=== PATIENT | female | born 1970 | race Caucasian/White ===

== ENCOUNTER 2019-08-01 15:25 | Outpatient (CLI) | payer BC, SELFPAY ==
[2019-08-01 15:47] LABS: Add Urine Microscopic? YES; Appearance Urine Clear (Clear); Bacteria Urine Trace /hpf; Bilirubin Urine Negative (Negative); Blood Urine 2+ (Negative); Color Urine Straw (Yellow); Glucose Urine UA Negative (Negative); Ketones Urine Negative (Negative); Leukocyte Esterase Ur Trace LEU/UL (Negative); Mucus Urine Rare /lpf; Nitrate Urine Negative (Negative); Protein Urine 1+ mg/dL (Negative); Specific Grav Ur 1.005 (1.001-1.035); Squamous Epithelial Cell Urine Few /hpf (Few); Urobilinogen Urine Negative mg/dL (<2.0); WBC Urine 0-3 /hpf
[2019-08-01 15:57] LABS: Alanine Aminotransferase 21 U/L (4-35); Albumin Level 4.3 g/dL (3.5-5.1); Alkaline Phosphatase 64 U/L (38-126); Aspartate Amino Transferase 24 U/L (14-36); Bilirubin,Total 0.6 mg/dL (0.2-1.3); Blood Urea Nitrogen 11 mg/dL (7-17); Calcium 9.3 mg/dL (8.4-10.2); Carbon Dioxide 31 mmol/L (22-30); Chloride 101 mmol/L (98-107); Estimated Glomerular Filt Rate 53; Glucose 94 mg/dL (65-105); Lipase 154 U/L (23-300); Potassium 3.8 mmol/L (3.4-5.0); Sodium 139 mmol/L (137-145)
== END 2019-08-01 15:26 | disposition home or self-care (01) ==
LOC: ANHLAB 15:26
PROVIDERS: PCP Family Medicine; Visit Provider Family Medicine
DX: R10.9 Unspecified abdominal pain (principal)
CPT/HCPCS: 36415; 80053; 81001; 83690

== ENCOUNTER 2020-04-05 13:29 | Emergency (ER) | payer BC, SELFPAY ==
[2020-04-05] VITALS (20 sets, daily range): BP systolic 106–128; BP diastolic 60–87; PULSE 73–86; RESP 16–27; TEMP 36.6; O2SAT 91–99
--- NOTE | ~2020-04-05 | XR_ITS ---
EXAMINATION: XR chest 1V portable DATE: 04/05/2020 14:16 INDICATION: Shortness of breath. COVID-19 positive. TECHNIQUE: A single frontal view of the chest was obtained. COMPARISON: CT abdomen and pelvis 02/21/2019 FINDINGS: There are mild airspace opacities in left mid and lower lung zones. No pleural effusion or pneumothorax. The heart size is normal. Surgical clips in the right upper quadrant are likely from ch olecystectomy. IMPRESSION: 1. Mild airspace opacities in left mid and lower lung zones, consistent with pneumonia. Reviewed, dictated and finalized at location A. IMPRESSION: 1. Mild airspace opacities in left mid and lower lung zones, consistent with pn eumonia.
--- NOTE | ~2020-04-05 | CT_ITS ---
EXAMINATION: CTA chest PE protocol DATE: 04/05/2020 15:12 INDICATION: Shortness of breath, elevated d-dimer, COVID positive TECHNIQUE: Computed tomography angiography (CTA) of the chest was performed with 100 mL Omnipaque-350 intravenous contrast timed to evaluate the pulmonary arteries. Coronal maximum intensity projection 3D-reconstructions were created by the technologist. The dose-length product (DLP) was 1029.14 mGy-cm . Automated exposure control and iterative reconstruction technique were employed. COMPARISON: None. FINDINGS: The pulmonary arteries are well-opacified. No pulmonary embolism is identified. There is a 4.2 x 4.1 cm soft tissue density nodule of the left thyroid lobe. Patchy groundglass and airspace opa cities are present throughout the lungs with a mid and lower lung zone predominance. There is no pleu ral effusion or pneumothorax. The heart size is normal. Prominent, but not enlarged, hilar lymph node s are likely reactive. There is mild thoracic spondylosis. The gallbladder is surgically absent. IMPRESSION: 1. No pulmonary embolism identified. 2. Patchy groundglass and airspace opacities in a distribution consistent with COVID 19 pneumonia. 3. 4.2 cm left thyroid nodule. Recommend nonemergent thyroid ultrasound for risk stratification. Reviewed, dictated and finalized at location A. IMPRESSION: 1. No pulmonary embolism identified. 2. Patchy groundglass and airspace opacities in a distribution consistent with COVID 19 pneumonia. 3. 4.2 cm left thyroid nodule. Recommend nonemergent thyroid ultrasound for ris k stratification.
--- NOTE | 2020-04-05 13:55 | ECG_ITS ---
Measurements Intervals [place] Rate: 80 P: 24 SD: 150 QRS: -30 QRSD: 94 T: 15 QT: 365 QTc: 422 Interpretive Statements SINUS RHYTHM INCOMPLETE RIGHT BUNDLE BRANCH BLOCK POOR R WAVE PROGRESSION, ANTERIOR LEADS BORDERLINE T WAVE ABNORMALITY- INFERIOR LEADS BASELINE ARTIFACT- I, III, AVR, AVL BORDERLINE ECG Electronically Signed On 04-05-2020 14:23:51 CDT by Germain Duenas D.O.
--- NOTE | 2020-04-05 13:55 | ED.URI ---
HPI - URI/Sore Throat General Chief Complaint: Upper Respiratory Infection Stated Complaint: sob, covid+ Time Seen by Provider: 04/05/20 13:32 Source: patient Limitations: no limitations History of Present Illness HPI Narrative: This is a 49 year old female that presents to the ER for shortness of breath x 1 week. Reports she tested positive for coronavirus. Reports ongoing cough and shortness of breath. Reports chest pain with cough. Denies fever or lower extremity edema. Related Data Home Medications Medication Instructions Recorded Confirmed escitalopram oxalate [Lexapro] 15 mg PO DAILY 04/05/20 fluticasone furoate-vilanterol 1 inh INHALATION 04/05/20 [Breo Ellipta] lisinopril 20 mg PO DAILY 04/05/20 Allergies Allergy/AdvReac Type Severity Reaction Status Date / Time No Known Allergies Allergy Verified 04/05/20 13:31 Review of Systems Review of Systems: Narrative: CONSTITUTIONAL: Denies fever ENT: Reports rhinorrhea, congestion CARDIOVASCULAR: Reports chest pain RESPIRATORY: Reports cough and dyspnea. All systems reviewed & are unremarkable except as noted in HPI and below PMFSH Past Medical History Medical History (Updated 04/05/20 @ 17:09 by Brisa Rucker PA-C) Depression Dyslipidemia Environmental allergies Essential (primary) hypertension GERD without esophagitis Mild intermittent asthma without complication Pre-diabetes Surgical History Surgical History (System 09/07/19 @ 12:34 by Swati Canas) H/O oophorectomy 2013 History of cholecystectomy 2000 Hx of section 1998 Hx of dilation and curettage x2 - 1996 Family History Family History (System 09/07/19 @ 12:34 by Swati Canas) Mother Hypertension Family history of diabetes mellitus in first degree relative Father Family history of diabetes mellitus in first degree relative Social History Social History (System 09/07/19 @ 12:34 by Swati Canas) Smoking status: Never smoker Second hand tobacco smoke exposure: No Alcohol intake: current Substance use: never Substance use type: does not use Exam Narrative: Exam Narrative: GENERAL: Well-appearing, obese, and in no acute distress. HEAD: Normocephalic, atraumatic. EYES: EOMI. ENT: Nares clear, no rhinorrhea or epistaxis. Mucous membranes moist. Oropharynx without tonsillar hypertrophy exudate or other lesions. Bilateral TMs pearly coppola non-bulging NECK: Supple. No adenopathy or masses. CHEST: Clear to auscultation. No respiratory distress. No wheezes rales or rhonchi HEART: Regular rate and rhythm. No murmur heard. Normal peripheral pulses. EXTREMITIES: Normal range of motion. No edema. SKIN: Warm, dry, no rash. NEURO: No focal deficits. Alert and oriented x3. PSYCH: Normal mood and affect Course Vital Signs Vital signs: Vital Signs Temperature 97.9 F 04/05/20 13:46 Pulse Rate 80 04/05/20 13:46 Respiratory Rate 16 04/05/20 13:46 Blood Pressure 115/71 04/05/20 13:46 Pulse Oximetry 96 04/05/20 13:46 Temperature 97.9 F 04/05/20 13:46 Pulse Rate 78 04/05/20 16:02 Respiratory Rate 19 04/05/20 16:02 Blood Pressure 106/60 04/05/20 16:01 Pulse Oximetry 95 04/05/20 16:15 MDM - URI/Sore Throat MDM Narrative Medical decision making narrative: Presents to the emergency department for worsening shortness of breath. Was recently diagnosed with Covid. Oxygen saturation has remained normal on room air. CBC without concerning findings. Metabolic panel with mild hypokalemia. Patient given dose of potassium in the ED. CRP and lactic are normal. Mild transaminitis and elevation in LDH, likely due to coronavirus. Chest x-ray shows airspace opacities in the left mid and lower lung zones, consistent with pneumonia. D-dimer was elevated, so CTA of the chest was obtained. No evidence of pulmonary embolism. Patient does have patchy groundglass and airspace opacities in the distribution consistent with Covid pne
--- NOTE | 2020-04-05 14:21 | PC.NURSE ---
patient here in ED room 14 with c/o not feeling well for the last few days. dx with Covid recently. c/o productive cough and body aches. assessments documented. alert. on monitor. EKG done. call light in reach. cold washcloth given to patient.
[2020-04-05 14:24] LABS: Basophils Percent Auto 0.3 % (0.2-1.2); Hematocrit 40.8 % (37.0-47.0); Hemoglobin 14.5 g/dL (12.0-15.0); Immature Granulocyte Absolute 0.01 K/mm3 (0.00-0.031); Immature Granulocyte Percent A 0.3 % (0-0.5); Lymphocytes Absolute Auto 0.98 K/mm3 (0.9-3.2); Lymphocytes Percent Auto 31.4 % (18.3-44.2); Mean Corpuscular HGB Conc 35.5 g/dl (32-36); Mean Corpuscular Hemoglobin 30.9 pg (26-34); Mean Platelet Volume 10.4 fl (7.4-10.4); Monocytes Absolute Auto 0.3 K/mm3 (0.1-0.6); Monocytes Percent Auto 10.9 % (2.6-8.5); Neutrophils Absolute Auto 1.8 K/mm3 (1.3-6.7); Neutrophils Percent Auto 57.1 % (45.5-73.1); Platelet Count Result 138 k/mm3 (150-375); Red Blood Count 4.69 M/mm3 (4.2-5.4); Red Cell Distribution Width 12.2 % (11.5-14.5); White Blood Count 3.1 K/mm3 (4.5-10.0)
[2020-04-05 14:39] LABS: Lactic Acid Reflex 0.8 mmol/L (0.7-2.1)
[2020-04-05 14:40] LABS: D Dimer 0.51 ug/mL (<0.48)
[2020-04-05 14:41] LABS: Alanine Aminotransferase 126 U/L (4-35); Albumin Level 3.5 g/dL (3.5-5.1); Alkaline Phosphatase 92 U/L (38-126); Anion Gap 5 mmol/L (8-16); Aspartate Amino Transferase 100 U/L (14-36); Bilirubin,Total 0.5 mg/dL (0.2-1.3); Blood Urea Nitrogen 8 mg/dL (7-17); CRP 1.1 mg/dL (<1.0); Carbon Dioxide 29 mmol/L (22-30); Chloride 98 mmol/L (98-107); Estimated CRCL calculation 86 ml/min; Estimated Glomerular Filt Rate > 60; Glucose 128 mg/dL (65-105); Lactate Dehydrogenase 813 U/L (313-618); Potassium 3.3 mmol/L (3.4-5.0); Sodium 132 mmol/L (137-145)
[2020-04-05 14:48] LABS: Troponin I < 0.012 ng/mL (0.000-0.034)
[2020-04-05] MEDS: ONDANSETRON INJ 4 MG/2 ML VIAL IV PUSH (15:15)
[2020-04-05] MEDS: POTASSIUM CHLORIDE 20 MEQ TABLET PO (16:23)
--- NOTE | 2020-04-05 17:30 | PC.NURSE ---
patient ready for discharge. reviewed instructions with patient. verbalized understanding.
== END 2020-04-05 17:29 | disposition home or self-care (01) ==
PROVIDERS: Physician Assistant; Emergency Provider Emergency Medicine; PCP Family Medicine
DX: U07.1 COVID-19 (principal); J12.89 Other viral pneumonia; E87.1 Hypo-osmolality and hyponatremia; E04.1 Nontoxic single thyroid nodule; E78.5 Hyperlipidemia, unspecified; I10 Essential (primary) hypertension; K21.9 Gastro-esophageal reflux disease without esophagitis; J45.20 Mild intermittent asthma, uncomplicated; R73.03 Prediabetes; I45.10 Unspecified right bundle-branch block; F32.9 Major depressive disorder, single episode, unspecified; R94.31 Abnormal electrocardiogram [ECG] [EKG]
CPT/HCPCS: 36415; 71045; 71275; 80053; 82728; 83605; 83615; 84484; 85025; 85380; 86140; 93005; 96374; 99284; A9270; J2405; Q9967

== ENCOUNTER → 2020-06-12 11:45 | Outpatient (CLI) | payer BC, SELFPAY ==
--- NOTE | ~2020-06-12 | US_ITS ---
EXAMINATION: US thyroid EXAM DATE: 06/12/2020 12:11 INDICATION: E04.1 - Nontoxic single thyroid nodule. TECHNIQUE: Multiple grayscale and Doppler images of the thyroid were obtained (by a technologist who performed the scan) and subsequently reviewed. Individual nodules and recommendations may be reporte d in accordance with TI-RADS system as designated by the 2017 ACR White Paper TI-RADS committee. The re is no prior study for comparison. FINDINGS: The right thyroid lobe measures 5.9 x 2.3 x 1.8 cm, The left measuring 7.3 x 4.0 x 5.3 cm. Relatively homogeneous thyroid echogenicity. Most of the size of the left thyroid lobe is due to a spongiform nodule measuring 5.8 x 3.2 x 4.5 no timeters, category TR1 for this nodule. Probably a colloid cyst. There is a left isthmus thyroid nodule measuring 2.1 x 1.5 x 2.2 cm, solid (2 points), isoechoic (1 p oint), wider than tall, smooth margin, without echogenic foci, category TR3 for this nodule. There is another nodule in the right thyroid isthmus measuring 1.8 x 1.0 x 1.4 cm, similar imaging characteri stics category TR 3 nodule. IMPRESSION: Multinodular goiter. Consider follow-up ultrasound in 2 years for the category TR 3 nod ules. Reviewed, dictated and finalized at location B. 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 Consider follow-up ultrasound in 2 years for the category TR 3 nodules.
== END ==
PROVIDERS: PCP Family Medicine; Visit Provider Family Medicine
DX: E04.2 Nontoxic multinodular goiter (principal)
CPT/HCPCS: 76536

== ENCOUNTER 2020-09-19 09:32 | Emergency (ER) | payer OTHER, BC, SELFPAY ==
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
[2020-09-19 09:35] VITALS: BP 158/93; PULSE 91; RESP 18; TEMP 36.1; O2SAT 98
--- NOTE | 2020-09-19 09:50 | PC.NURSE ---
Pt to CT via stretcher at this time.
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
== END 2020-09-19 11:51 | disposition home or self-care (01) ==
PROVIDERS: Emergency Provider Emergency Medicine; PCP Family Medicine
DX: S16.1XXA Strain of muscle, fascia and tendon at neck level, initial encounter (principal); Z86.16 Personal history of COVID-19; E78.5 Hyperlipidemia, unspecified; F32.9 Major depressive disorder, single episode, unspecified; K21.9 Gastro-esophageal reflux disease without esophagitis; I10 Essential (primary) hypertension; E73.9 Lactose intolerance, unspecified; J45.20 Mild intermittent asthma, uncomplicated; R73.03 Prediabetes; E04.1 Nontoxic single thyroid nodule; V49.40XA Driver injured in collision with unspecified motor vehicles in traffic accident, initial encounter
CPT/HCPCS: 72125; 96365; 99284; J0131

== ENCOUNTER 2020-10-08 21:49 | Emergency (ER) | payer BC, SELFPAY ==
[2020-10-08 21:53] VITALS: BP 183/101; PULSE 87; RESP 18; TEMP 36; O2SAT 99
[2020-10-08] MEDS: LIDOCAINE HCL 1% LOCAL INJ 20 ML VIAL 5 ML INFILTRATE (22:44)
--- NOTE | 2020-10-08 23:16 | ED.WOUNDLAC ---
HPI - Wound/Laceration General Chief Complaint: Wound/Laceration Stated Complaint: right middle finger lac Time Seen by Provider: 10/08/20 22:02 Source: patient Mode of arrival: ambulatory Limitations: no limitations History of Present Illness HPI narrative: This is a 49 year old female who presents for evaluation of a right 3rd finger laceration. She states tonight glass accidently broke in her hand, and she cut her right 3rd finger. She denies numbness or tingling. Her last tetanus was in 2019. Related Data Home Medications Medication Instructions Recorded Confirmed escitalopram oxalate [Lexapro] 15 mg PO DAILY 04/05/20 10/08/20 fluticasone furoate-vilanterol 1 inh INHALATION 04/05/20 10/08/20 [Breo Ellipta] triamcinolone acetonide 55 mcg 2 spray INTRANASAL DAILY 06/04/20 10/08/20 nasal spray aerosol cetirizine 10 mg capsule 10 mg PO DAILY PRN 10/08/20 10/08/20 guaifenesin 600 mg tablet, 600 mg PO Q12H PRN 10/08/20 10/08/20 extended release 12 hr montelukast 10 mg tablet 10 mg PO DAILY 10/08/20 10/08/20 Allergies Allergy/AdvReac Type Severity Reaction Status Date / Time No Known Allergies Allergy Verified 10/08/20 16:16 Review of Systems Review of Systems: All systems reviewed & are unremarkable except as noted in HPI and below PMFSH Past Medical History Medical History 2018 novel coronavirus disease (COVID-19) 03/2020 Depression Dyslipidemia Environmental allergies Essential (primary) hypertension GERD without esophagitis Lactose intolerance Mild intermittent asthma without complication Multinodular goiter Pre-diabetes Surgical History Surgical History H/O oophorectomy (~2012) 2013 - left due to recurrent cyst History of cholecystectomy (~1999) 1999 Hx of section (~1997) 1997 Hx of dilation and curettage (~1995) x2 - 1995 Family History Family History Mother Hypertension Family history of diabetes mellitus in first degree relative Asthma Diabetes mellitus Depression Father Family history of diabetes mellitus in first degree relative Asthma Diabetes mellitus Hypertension Depression Sibling Asthma Depression Grandparent Diabetes mellitus Hypertension Cerebrovascular accident Grandparent Diabetes mellitus Heart disease Social History Social History Smoking status: Never smoker Second hand tobacco smoke exposure: No Alcohol intake: current Substance use: never Substance use type: does not use Gender identity (if verbalized by the patient): Female Exam Const: General: alert Orientation/consciousness: patient oriented x3 Eyes: EOM: EOMs intact bilaterally Resp: Effort & Inspection: normal respiratory effort Skin: Other: right dorsum mid 3rd finger with 1 cm linear flap laceration, no bleeding. Neuro: General: patient oriented x3 and moves all extremities Course Vital Signs Vital signs: Vital Signs Temperature 96.8 F L 10/08/20 21:53 Pulse Rate 87 10/08/20 21:53 Respiratory Rate 18 10/08/20 21:53 Blood Pressure 183/101 H 10/08/20 21:53 Pulse Oximetry 99 10/08/20 21:53 Temperature 96.8 F L 10/08/20 21:53 Pulse Rate 78 10/08/20 23:50 Respiratory Rate 18 10/08/20 23:50 Blood Pressure 164/87 H 10/08/20 23:50 Pulse Oximetry 97 10/08/20 23:50 Procedures Laceration Laceration 1: Date: 10/08/20 Time: 23:22 Side (If applicable): right (3rd finger) Description: linear and flap Depth: simple, single layer Local Anesthetic: lidocaine 1% Amount of anesthesia used (mL): 2 ====== Skin Level ====== Skin layer closed with: prolene Size (cm): 4-0 Number of sutures: 2 Technique:
[2020-10-08 23:50] VITALS: BP 164/87; PULSE 78; RESP 18; O2SAT 97
== END 2020-10-08 23:50 | disposition home or self-care (01) ==
PROVIDERS: Emergency Provider General Practice; PCP Family Medicine
DX: S61.212A Laceration without foreign body of right middle finger without damage to nail, initial encounter (principal); F32.9 Major depressive disorder, single episode, unspecified; I10 Essential (primary) hypertension; E78.5 Hyperlipidemia, unspecified; K21.9 Gastro-esophageal reflux disease without esophagitis; W25.XXXA Contact with sharp glass, initial encounter
CPT/HCPCS: 12001; 99282

== ENCOUNTER → 2020-12-27 15:14 | Outpatient (CLI) | payer BC, SELFPAY ==
--- NOTE | ~2020-12-27 | MM_ITS ---
EXAMINATION: MM screening [facility] BI w moriah HISTORY: Screening mammogram TECHNIQUE: Craniocaudal 3-D tomosynthesis images were obtained and synthetic 2-D images were generate d. Mediolateral oblique images were obtained using full field digital mammography CAD analysis was brasher bmitted and interpreted. COMPARISON: 04/27/2018, 03/09/2012, 01/20/2008 BREAST PARENCHYMAL COMPOSITION: The breasts are almost entirely fatty. FINDINGS: There is no evidence of suspicious mass, calcification, or architectural distortion to sugg est malignancy in either breast. There has been no suspicious interval change. IMPRESSION: 1. No mammographic evidence of malignancy. 2. Recommend routine screening mammography in one year. BI-RADS Category 1: Negative Reviewed, dictated and finalized at location A.
== END ==
PROVIDERS: Visit Provider Nurse Practitioner Obstetrics & Gynecology
DX: Z12.31 Encounter for screening mammogram for malignant neoplasm of breast (principal)
CPT/HCPCS: 77063; 77067

== ENCOUNTER 2021-06-10 07:21 | Outpatient (CLI) | payer BC, SELFPAY ==
[2021-06-10 07:41] LABS: Basophils Percent Auto 0.5 % (0.2-1.2); Eosinophils Absolute Auto 0.2 K/mm3 (0-0.3); Eosinophils Percent Auto 3.6 % (0-4.4); Hematocrit 40.9 % (37.0-47.0); Hemoglobin 13.8 g/dL (12.0-15.0); Immature Granulocyte Absolute 0.02 K/mm3 (0.00-0.031); Immature Granulocyte Percent A 0.3 % (0-0.5); Lymphocytes Absolute Auto 2.12 K/mm3 (0.9-3.2); Lymphocytes Percent Auto 33.3 % (18.3-44.2); Mean Corpuscular HGB Conc 33.7 g/dl (32-36); Mean Corpuscular Hemoglobin 30.8 pg (26-34); Mean Corpuscular Volume 91.3 fl (80-100); Mean Platelet Volume 9.1 fl (7.4-10.4); Monocytes Absolute Auto 0.6 K/mm3 (0.1-0.6); Monocytes Percent Auto 9.1 % (2.6-8.5); Neutrophils Absolute Auto 3.4 K/mm3 (1.3-6.7); Neutrophils Percent Auto 53.2 % (45.5-73.1); Platelet Count Result 265 k/mm3 (150-375); Red Blood Count 4.48 M/mm3 (4.2-5.4); Red Cell Distribution Width 12.5 % (11.5-14.5); White Blood Count 6.4 K/mm3 (4.5-10.0)
[2021-06-10 07:50] LABS: Alanine Aminotransferase 23 U/L (4-35); Albumin Level 4.4 g/dL (3.5-5.1); Alkaline Phosphatase 88 U/L (38-126); Amylase 60 U/L (30-110); Anion Gap 8 mmol/L (8-16); Aspartate Amino Transferase 28 U/L (14-36); Bilirubin,Total 0.8 mg/dL (0.2-1.3); Blood Urea Nitrogen 7 mg/dL (7-17); Calcium 9.1 mg/dL (8.4-10.2); Carbon Dioxide 29 mmol/L (22-30); Chloride 101 mmol/L (98-107); Cholesterol 182 mg/dL (0-200); Estimated Glomerular Filt Rate 59; Glucose 101 mg/dL (65-110); HDL Direct 66 mg/dL; Lipase 177 U/L (23-300); Potassium 3.6 mmol/L (3.4-5.0); Sodium 138 mmol/L (137-145); Triglycerides 122 mg/dL (<150)
[2021-06-10 08:01] LABS: LDL Cholesterol Direct 70 mg/dL
[2021-06-10 09:38] LABS: Hemoglobin A1C 5.9 % (<5.7)
[2021-06-10 14:07] LABS: Vitamin D 25 Hydroxy 15.5 ng/mL
== END 2021-06-10 07:22 | disposition home or self-care (01) ==
LOC: ANHLAB 07:24
PROVIDERS: PCP Family Medicine; Visit Provider Family Medicine
DX: Z00.00 Encounter for general adult medical examination without abnormal findings (principal); R10.9 Unspecified abdominal pain; I10 Essential (primary) hypertension; E55.9 Vitamin D deficiency, unspecified; R73.03 Prediabetes; E78.5 Hyperlipidemia, unspecified
CPT/HCPCS: 36415; 80053; 80061; 82150; 82306; 83036; 83690; 84443; 85025

== ENCOUNTER 2021-06-25 19:37 | Emergency (ER) | payer BC, SELFPAY ==
[2021-06-25 19:44] VITALS: BP 152/100; PULSE 84; RESP 18; TEMP 36.1; O2SAT 100
[2021-06-25 22:29] VITALS: BP 193/118; PULSE 82; O2SAT 98
[2021-06-26] VITALS (10 sets, daily range): BP systolic 158–173; BP diastolic 73–115; PULSE 82; RESP 24; O2SAT 96–100
[2021-06-26] MEDS: ONDANSETRON INJ 4 MG/2 ML VIAL IV PUSH (01:24)
[2021-06-26] MEDS: SODIUM CHLORIDE 0.9% IV 1,000 ML 999 ML IV CONT ×2 (01:24→02:22)
--- NOTE | 2021-06-26 01:36 | ED.NAVMDI ---
HPI - Nausea/Vomiting/Diarrhea General Chief complaint: Nausea/Vomiting/Diarrhea Stated complaint: n/v Time Seen by Provider: 06/26/21 00:44 Source: patient Mode of arrival: ambulatory Limitations: no limitations History of Present Illness HPI Narrative: 50-year-old with a history of hypertension here with complaints of nausea, vomiting since this evening. She states that she was babysitting her granddaughter yesterday who had the symptoms. She denies any fever or chills no history states that she threw up at least 4-5 times prior to coming to ER. MD elicited complaint: nausea and vomiting Description of vomiting: watery Associated nausea: Yes Associated abdominal pain: No Location of pain: none Exacerbating factors: eating Related Data Home Medications Medication Instructions Recorded Confirmed escitalopram oxalate [Lexapro] 15 mg PO DAILY 04/05/20 06/09/21 triamcinolone acetonide 55 mcg 2 spray INTRANASAL DAILY 06/04/20 06/09/21 nasal spray aerosol guaifenesin 600 mg tablet, 600 mg PO PRN PRN 10/08/20 06/09/21 extended release 12 hr levocetirizine 5 mg tablet 5 mg PO DAILY 12/17/20 12/17/20 montelukast 10 mg tablet 10 mg PO .COMPLEX 12/17/20 06/09/21 lisinopril 06/26/21 Allergies Allergy/AdvReac Type Severity Reaction Status Date / Time No Known Allergies Allergy Verified 06/26/21 01:29 Review of Systems Review of Systems: All systems reviewed & are unremarkable except as noted in HPI and below Constitutional: Constitutional: Reports no additional constitutional complaints Eyes: Eyes: Reports no additional eye complaints ENT: Reports system reviewed and no additional complaints, except as documented Cardiovascular: Cardiovascular: Reports no additional cardiovascular complaints Respiratory: Respiratory: Reports no additional respiratory complaints Gastrointestinal: Gastrointestinal: Reports as per HPI Musculoskeletal: Musculoskeletal: Reports no additional musculoskeletal complaints [facility] Past Medical History Medical History 2019 novel coronavirus disease (COVID-19) 03/2020 Depression Dyslipidemia Environmental allergies Essential (primary) hypertension GERD without esophagitis History of pancreatitis Lactose intolerance Mild intermittent asthma without complication Multinodular goiter Pre-diabetes Surgical History Surgical History H/O oophorectomy (~2012) 2013 - left due to recurrent cyst History of cholecystectomy (~1999) 2000 Hx of section (~1997) 1997 Hx of dilation and curettage (~1995) x2 - 1995 Family History Family History Mother Hypertension Family history of diabetes mellitus in first degree relative Asthma Diabetes mellitus Depression Father Family history of diabetes mellitus in first degree relative Asthma Diabetes mellitus Hypertension Depression Sibling Asthma Depression Grandparent Diabetes mellitus Hypertension Cerebrovascular accident Grandparent Diabetes mellitus Heart disease Social History Social History Second hand tobacco smoke exposure: No Alcohol intake: current Alcohol use details: 2 beers consumed occasionally Substance use: never Substance use type: does not use Gender identity (if verbalized by the patient): Female Course Vital Signs Vital signs: Vital Signs Temperature 36.1 C L 06/25/21 19:44 Pulse Rate 84 06/25/21 19:44 Respiratory Rate 18 06/25/21 19:44 Blood Pressure 152/100 H 06/25/21 19:44 Pulse Oximetry 100 06/25/21 19:44 Temperature 36.1 C L 06/25/21 19:44 Pulse Rate 82 06/26/21 01:24 Respiratory Rate 24 H 06/26/21 01:24 Blood Pressure 160/115 H 06/26/21 01:24 Pulse Oximetry 99 06/26/21 01:24 MDM - Nausea/Vomitin
[2021-06-26 01:52] LABS: Basophils Percent Auto 0.2 % (0.2-1.2); Eosinophils Percent Auto 0.2 % (0-4.4); Hematocrit 45.1 % (37.0-47.0); Hemoglobin 15.5 g/dL (12.0-15.0); Immature Granulocyte Absolute 0.02 K/mm3 (0.00-0.031); Immature Granulocyte Percent A 0.2 % (0-0.5); Lymphocytes Absolute Auto 0.72 K/mm3 (0.9-3.2); Lymphocytes Percent Auto 6.2 % (18.3-44.2); Mean Corpuscular HGB Conc 34.4 g/dl (32-36); Mean Corpuscular Hemoglobin 30.2 pg (26-34); Mean Corpuscular Volume 87.9 fl (80-100); Mean Platelet Volume 9.5 fl (7.4-10.4); Monocytes Absolute Auto 0.5 K/mm3 (0.1-0.6); Neutrophils Absolute Auto 10.4 K/mm3 (1.3-6.7); Neutrophils Percent Auto 89.2 % (45.5-73.1); Platelet Count Result 349 k/mm3 (150-375); Red Blood Count 5.13 M/mm3 (4.2-5.4); Red Cell Distribution Width 12.5 % (11.5-14.5); White Blood Count 11.6 K/mm3 (4.5-10.0)
--- NOTE | 2021-06-26 01:53 | PC.NURSE ---
Pt reports was unable to keep htn medications down.
[2021-06-26 02:06] LABS: Add Urine Microscopic? YES; Alanine Aminotransferase 32 U/L (4-35); Albumin Level 4.7 g/dL (3.5-5.1); Alkaline Phosphatase 103 U/L (38-126); Anion Gap 12 mmol/L (8-16); Appearance Urine Cloudy (Clear); Aspartate Amino Transferase 30 U/L (14-36); Bilirubin Urine Negative (Negative); Blood Urea Nitrogen 13 mg/dL (7-17); Blood Urine 3+ (Negative); Calcium 9.5 mg/dL (8.4-10.2); Carbon Dioxide 23 mmol/L (22-30); Chloride 105 mmol/L (98-107); Color Urine Amber (Yellow); Estimated CRCL calculation 78 ml/min; Estimated Glomerular Filt Rate 59; Glucose 147 mg/dL (65-110); Glucose Urine UA Negative (Negative); Ketones Urine Trace mg/dL (Negative); Leukocyte Esterase Ur Negative LEU/UL (Negative); Lipase 107 U/L (23-300); Mucus Urine Heavy /lpf; Nitrate Urine Negative (Negative); Potassium 3.7 mmol/L (3.4-5.0); Protein Urine 3+ mg/dL (Negative); RBC Urine >75 /hpf (0-2); Sodium 140 mmol/L (137-145); Specific Grav Ur 1.025 (1.001-1.035); Squamous Epithelial Cell Urine Occasional /hpf (Few); Urobilinogen Urine Negative mg/dL (<2.0)
--- NOTE | 2021-06-26 02:09 | PC.NURSE ---
Addendum entered by Damien Rojas RN 06/26/21 02:10: Pt states also has a history of having blood in her urine. Has seen a urologist and they suspect she has kidney stones. Pt states no pain in her back at present time. Original Note: States feels quite a bit better.
--- NOTE | 2021-06-26 03:20 | PC.NURSE ---
Dr. Viveros at bedside discussing plan of care. Pt states nausea is returning. Verbal order received.
[2021-06-26] MEDS: PROMETHAZINE HCL 25 MG/ML AMPUL 12.5 MG IV PUSH (03:24)
== END 2021-06-26 03:40 | disposition home or self-care (01) ==
PROVIDERS: Emergency Provider Family Medicine; PCP Family Medicine
DX: K52.9 Noninfective gastroenteritis and colitis, unspecified (principal); I10 Essential (primary) hypertension; E78.5 Hyperlipidemia, unspecified; K21.9 Gastro-esophageal reflux disease without esophagitis; E73.9 Lactose intolerance, unspecified; J45.20 Mild intermittent asthma, uncomplicated; R73.03 Prediabetes; E04.2 Nontoxic multinodular goiter; F32.A Depression, unspecified; Z86.16 Personal history of COVID-19
CPT/HCPCS: 36415; 80053; 81001; 83690; 85025; 96361; 96374; 96375; 99284; J2405; J2550; J7030

== ENCOUNTER 2021-09-29 08:01 | Outpatient (CLI) | payer BC, SELFPAY ==
--- NOTE | 2021-09-29 08:00 | ECG_ITS ---
Measurements Intervals [place] Rate: 68 P: 9 NV: 127 QRS: -16 QRSD: 110 T: 12 QT: 397 QTc: 423 Interpretive Statements SINUS RHYTHM POOR R-WAVE PROGRESSION LOW QRS VOLTAGE IN PRECORDIAL LEADS [QRS DEFLECTION < 1.0 mV IN CHEST LEADS] COMPARED TO ECG 04/05/2020 14:07:40 NO SIGNIFICANT CHANGES Electronically Signed On 09-29-2021 15:30:49 CDT by Karthikeyan Mancia M.D.
== END 2021-09-29 08:02 | disposition home or self-care (01) ==
LOC: ANHSURGERY 08:06
PROVIDERS: PCP Internal Medicine; Visit Provider Otolaryngology
DX: Z01.818 Encounter for other preprocedural examination (principal); I10 Essential (primary) hypertension
CPT/HCPCS: 93005

== ENCOUNTER 2021-09-30 00:34 | Day surgery (SDC) | payer BC, SELFPAY ==
[2021-09-24 10:36] VITALS: BMI 40.9
--- NOTE | 2021-09-24 10:49 | PC.NURSE ---
Report to the Outpatient Waiting Room, entrance under the green pavilion located off [facility], at time 6:00 on date 09/30/21. OR Time: 7:45. - You and your visitor will be asked a series of questions to screen for COVID 19 for your protection. - A mask is required within the hospital. One visitor will be allowed to accompany the patient into the hospital. Patients visitor will be instructed to remain with patient at all times or leave the building. We will allow the visitor to come back to the postoperative area when patient is ready. Preoperative COVID Testing Requirements: TO BRING COPY OF COVID CARD No COVID Test needed if: (proof is required; if not received patient will have Rapid Test prior to entry) - Patient has received COVID Vaccine at least 14 days prior to procedure date or - Patient has positive COVID test result within last 90 days of surgery date. COVID Test needed if above criteria is not met Patients may have clear liquids (water, carbonated beverages, clear teas, apple juice) until 3 hours prior to surgery with a maximum of 20 ounces. - No food from midnight until time of surgery - Infants may have breast milk until 4 hours before surgery, infant formula 6 hours prior to surgery. - Children will be allowed to drink immediately following surgery. If applicable, please bring a bottle or sippy cup to assist with drinking. Juice, water, soda, and popsicles are readily available. For infants on formula, please bring formula the day of surgery. Pacifiers are allowed. Take the following medications with a SIP of water the morning of surgery: INHALERS Medications to discontinue per physician: VITAMINS/SUPPLEMENTS Date to take last dose: 09/26/21 Please no make-up, nail salvadorean, hairspray, perfume, deodorant, or body powder the day of surgery. No jewelry (including any body piercings) or valuables the day of surgery, leave them at home. Please take a shower or bath the night before, or the morning of, surgery with an antibacterial soap. Wear comfortable, loose fitting clothing. - Jewelry must be removed prior to entering the operating room. Rings and piercings that are not removed may be cut off. - The hospital will not accept responsibility for valuables. - Please leave all valuables, including medications, at home the day of surgery. If you are going home after surgery, a licensed ambulette driver must drive you home. - NO public transportation without another adult. - We recommend that an adult stay with you for 24 hours following discharge. - We also recommend that you do not drive, make important decision, drink alcoholic beverages, or take any drugs that were not prescribed by your health care provider for at least 24 hours after your discharge time. Follow any additional instructions given to you from your surgeon. Telephone instructions given to ANGELA MONTENEGRO and asked if any additional questions and then verbalized understanding. Patient advised to call surgeon office or pre surgery nurse liaison [phone] if any additional questions.
--- NOTE | 2021-09-29 12:56 | WPDANESEPPF ---
Anes - Initial Pre Proc Eval Procedure: Operation Date: 09/30/21 07:45 Proposed Procedures p Left Thyroidectomy, Isthmusectomy - Daniel Napoles MD Date/Time: 09/29/21 12:56 Surgeon: Daniel Napoles MD Pre Op Diagnosis: left thyroid nodule Patient Data Age: 50 Gender: F Height: 1.68 m Weight: 115 kg Allergies Allergy/AdvReac Type Severity Reaction Status Date / Time adhesive AdvReac Redness of Verified 09/30/21 07:36 Skin Home Medications Medication Instructions Recorded Confirmed Type escitalopram oxalate [Lexapro] 15 mg PO HS 04/05/20 09/24/21 History triamcinolone acetonide 55 mcg 2 spray INTRANASAL DAILY 06/04/20 09/24/21 History nasal spray aerosol guaifenesin 600 mg tablet, 600 mg PO PRN PRN 10/08/20 09/24/21 History extended release 12 hr levocetirizine 5 mg tablet 5 mg PO DAILY 12/17/20 09/24/21 History montelukast 10 mg tablet 10 mg PO .COMPLEX 12/17/20 09/24/21 History omeprazole 40 mg capsule,delayed 40 mg PO DAILY #90 cap 04/22/21 09/24/21 Rx release cholecalciferol (vitamin D3) 1,250 1,250 mcg PO WEEKLY #12 tablet 06/10/21 09/24/21 Rx mcg (50,000 unit) tablet Lacto.acidophilus-Bif.animalis 1 cap PO DAILY 08/18/21 09/24/21 History [Daily Probiotic] albuterol sulfate 90 mcg/actuation 1 puff INHALATION Q4H PRN 08/18/21 09/24/21 History aerosol inhaler cetirizine 10 mg tablet 10 mg PO WEEKLY PRN tablet 08/18/21 09/24/21 History diphenhydramine HCl 25 mg capsule 50 mg PO HS cap 08/18/21 09/24/21 History famotidine 40 mg tablet 40 mg PO .once monthly tablet 08/18/21 09/24/21 History fluticasone furoate 200 1 inh INHALATION DAILY #60 ea 08/18/21 09/24/21 Rx mcg-vilanterol 25 mcg/dose inhalation powder lisinopril 20 mg tablet 20 mg PO DAILY 08/18/21 09/24/21 History multivitamin 1 tablet PO DAILY 08/18/21 09/24/21 History ashwagandha root extract 300 mg PO DAILY 09/24/21 09/24/21 History Patient hx anesthesia problems: none Family hx anesthesia problems: none Results Review: All pre-operative results and documents have been reviewed as part of the pre-operative evaluation. [facility] Past Medical History Medical History (Updated 09/29/21 @ 12:56 by Trevon Jackson, DO) 2019 novel coronavirus disease (COVID-19) 03/2020 Anxiety Asthma Depression Dyslipidemia Environmental allergies Essential (primary) hypertension GERD without esophagitis History of pancreatitis Lactose intolerance Mild intermittent asthma without complication Multinodular goiter Pre-diabetes Surgical History Surgical History H/O oophorectomy (~2012) 2013 - left due to recurrent cyst History of cholecystectomy (~1999) 1999 History of tonsillectomy 1978 Hx of section (~1997) 1997 Hx of dilation and curettage (~1995) x2 - 1995 Family History Family History Mother Hypertension Family history of diabetes mellitus in first degree relative Asthma Diabetes mellitus Depression Father Family history of diabetes mellitus in first degree relative Asthma Diabetes mellitus Hypertension Depression Sibling Asthma Depression Grandparent Diabetes mellitus Hypertension Cerebrovascular accident Grandparent Diabetes mellitus Heart disease Alcoholism Depression Cerebrovascular accident Social History Social History Smoking status: Never smoker Second hand tobacco smoke exposure: No Alcohol intake: never Alcohol use details: 2 beers consumed occasionally Substance use: current Substance use type: marijuana Other substance usage details: EDIBLES AT NIGHT Living arrangements: with family Gender identity (if verbalized by the patient): Female Spiritual care concerns: No Anes - Eval Final PreProcedure Day of Procedure 09/29/21 12:56 Patient weight: morbidly obese H
--- NOTE | 2021-09-29 18:37 | PM.IMHP ---
H&P: HPI History of Present Illness Date/Time: 09/29/21 18:37 Chief Complaint: choking coughing compression thyroid goiter left thyroid nodule thyroid isthmus nodule Narrative: patient presents for planned surgical procedure no change in symptoms no change in history Review of Systems Constitutional: Constitutional: Denies fatigue, Denies fever(s) and Denies lethargy Eyes: Eyes: Denies blurry vision and Denies change in vision ENT: Reports as per HPI Cardiovascular: Cardiovascular: Denies chest pain Respiratory: Respiratory: Denies cough Endocrine: Endocrine: Denies fatigue Hematologic/Lymphatic: Hematologic/Lymphatic: Denies easy bleeding, Denies easy bruising and Denies lymphadenopathy Allergic/Immunologic: Allergic/Immunologic: Denies seasonal rhinorrhea [facility] Past Medical History Medical History (Updated 09/29/21 @ 12:56 by Trevon Jackson, DO) 2019 novel coronavirus disease (COVID-19) 03/2020 Anxiety Asthma Depression Dyslipidemia Environmental allergies Essential (primary) hypertension GERD without esophagitis History of pancreatitis Lactose intolerance Mild intermittent asthma without complication Multinodular goiter Pre-diabetes Surgical History Surgical History H/O oophorectomy (~2012) 2013 - left due to recurrent cyst History of cholecystectomy (~1999) 1999 History of tonsillectomy 1978 Hx of section (~1997) 1998 Hx of dilation and curettage (~1995) x2 - 1995 Family History Family History Mother Hypertension Family history of diabetes mellitus in first degree relative Asthma Diabetes mellitus Depression Father Family history of diabetes mellitus in first degree relative Asthma Diabetes mellitus Hypertension Depression Sibling Asthma Depression Grandparent Diabetes mellitus Hypertension Cerebrovascular accident Grandparent Diabetes mellitus Heart disease Alcoholism Depression Cerebrovascular accident Social History Social History Smoking status: Never smoker Second hand tobacco smoke exposure: No Alcohol intake: never Alcohol use details: 2 beers consumed occasionally Substance use: current Substance use type: marijuana Other substance usage details: EDIBLES AT NIGHT Gender identity (if verbalized by the patient): Female Spiritual care concerns: No Meds Home Medications and Allergies Home Medications Medication Instructions Recorded Confirmed Type escitalopram oxalate [Lexapro] 15 mg PO HS 04/05/20 09/24/21 History triamcinolone acetonide 55 mcg 2 spray INTRANASAL DAILY 06/04/20 09/24/21 History nasal spray aerosol guaifenesin 600 mg tablet, 600 mg PO PRN PRN 10/08/20 09/24/21 History extended release 12 hr levocetirizine 5 mg tablet 5 mg PO DAILY 12/17/20 09/24/21 History montelukast 10 mg tablet 10 mg PO .COMPLEX 12/17/20 09/24/21 History omeprazole 40 mg capsule,delayed 40 mg PO DAILY #90 cap 04/22/21 09/24/21 Rx release cholecalciferol (vitamin D3) 1,250 1,250 mcg PO WEEKLY #12 tablet 06/10/21 09/24/21 Rx mcg (50,000 unit) tablet Lacto.acidophilus-Bif.animalis 1 cap PO DAILY 08/18/21 09/24/21 History [Daily Probiotic] albuterol sulfate 90 mcg/actuation 1 puff INHALATION Q4H PRN 08/18/21 09/24/21 History aerosol inhaler cetirizine 10 mg tablet 10 mg PO WEEKLY PRN tablet 08/18/21 09/24/21 History diphenhydramine HCl 25 mg capsule 50 mg PO HS cap 08/18/21 09/24/21 History famotidine 40 mg tablet 40 mg PO .once monthly tablet 08/18/21 09/24/21 History fluticasone furoate 200 1 inh INHALATION DAILY #60 ea 08/18/21 09/24/21 Rx mcg-vilanterol 25 mcg/dose inhalation powder lisinopril 20 mg tablet 20 mg PO DAILY 08/18/21 09/24/21 History multivitamin 1 tablet PO DAILY 08/18/21 09/24/21 History ashwagandha root extract
[2021-09-30] VITALS (10 sets, daily range): BP systolic 128–143; BP diastolic 80–93; PULSE 70–91; RESP 8–18; TEMP 36.3–36.8; O2SAT 95–98
--- NOTE | 2021-09-30 07:22 | WPDHPUPDATE1 ---
History and Physical Update Update Date/Time: 09/30/21 07:22 History and Physical has been reviewed, including an updated exam of the patient. There are NO changes in the patient's condition. Risks, benefits, and alternatives have been discussed and questions answered. Patient agrees to proceed with procedure.
[2021-09-30] MEDS: LACTATED RINGERS 1,000 ML 30 ML IV CONT ×2 (07:23→11:01)
[2021-09-30] MEDS: ACETAMINOPHEN 500 MG TABLET 1000 MG PO (07:38)
[2021-09-30] MEDS: ceFAZolin 2 GM/D5W 50 ML 2 GM/50 ML BAG IVPB (08:16)
[2021-09-30] MEDS: LIDO 1%/EPINEPHRINE/PF 1:200,000 30 ML VIAL 4 ML XX (09:26)
--- NOTE | 2021-09-30 09:55 | SUR.OPER ---
sent cytology specimen with PHILLIP Adames and received in pathology by Kathy
[2021-09-30] MEDS: fentaNYL CITRATE INJ (*CRX) 100 MCG/2 ML VIAL 25 MCG IV PUSH ×8 (11:20→11:55)
--- NOTE | 2021-09-30 11:42 | W.PM.PROC2 ---
Procedure Note - Detailed Date of Procedure 09/30/21 Pre-op Diagnosis left thyroid nodule/cyst, thyroid isthmus nodule cough choking compression Post-op Diagnosis Same Procedure Performed Left thyroid lobectomy, thyroid isthmusectomy, recurrent laryngeal nerve monitoring Surgeon Daniel Napoles MD Anesthesia General (NIMS) Indications See above Findings Large left thyroid lobe largely cystic drained fluid sent for cytology nerve not identified but stimulated cord moved end of procedure I believe both the superior and inferior parathyroids were identified Description of Procedure Patient identified consent verified. Patient brought operating room. Time-out performed. General anesthesia induced. Nims monitoring tube secured. Patient prepped and draped 3 cc 1% lidocaine 1 100,000 parts epinephrine injected deep to a pre drawn 7 cm surgical incision in a relaxed skin tension line about 2 fingerbreadths above the heads of the clavicles. Patient then prepped and draped. Second time-out performed names monitoring had been set up prior to this. Fifteen blade utilized to cut through the skin and Bovie through the dermis to the subcutaneous tissue. Bovie as well as ligature electrocautery to dissect through the platysma superior inferior based subplatysmal flaps were elevated. Dura hooks placed midline Jan Fe identified dissected using ligature up to the thyroid notch down to the sternal notch good exposure left thyroid lobe and isthmus easily viewed very large, dissected in the capsular plane deep to the sternothyroid sternohyoid [place] used to retract. Blunt dissection was carried around. Bleeding vessel encountered around the superior laryngeal nerve external branch this was cauterized the nerve repeat her okay difficult to test. Dissection with peanuts carried around the inferior thyroid artery was cauterized using ligature same with the middle thyroid vein superior thyroid vessels as well. I believe the superior parathyroid gland and inferior parathyroid glands were successfully preserved. At this point the cyst was very large and difficult to rotate out so the decision was made to drain it an 18 gauge needle was utilized to puncture the cyst the fluid was sent for cytology and the cyst was drained this made rotation out of the wound very easy the nerve was never identified but the plane of dissection was always superior to the cricoid thyroid joint. At the end of the procedure once the thyroid was removed with ligature the nerve was stimulated and traced inferiorly. The wound was then copiously irrigated with sterile normal saline. Fifteen Slovenian suction drain placed sutured to the skin using a 3-0 excuse me to 0 nylon suture. The wound was then closed because at hemostasis was excellent. Deep layers closed with 3-0 interrupted Vicryl sutures including the strap muscles in the superior portion this platysma as well as subcutaneous subdermal layers all closed with 3-0 interrupted Vicryl sutures. The dermis was closed with 4-0 interrupted Vicryl sutures. Skin glue was utilized to close the skin. Drain sponge placed. I performed all dictated portions of the procedure. Care the patient was turned over to Anesthesiology. Upon extubation a glide scope was utilized to view the laryngeal inlet both cords moved symmetrically. Total blood loss about 25 cc. Estimated Blood Loss -25.0 Drains Yes Packing No Pathology Yes Complications No immediate complications Condition Stable Disposition PACU
[2021-09-30] MEDS: oxyCODONE HCL (*CRX) 5 MG TAB IR PO (12:27)
== END 2021-09-30 13:08 | disposition home or self-care (01) ==
PROVIDERS: PCP Internal Medicine; Visit Provider Otolaryngology
PROC: (CPT 60220; principal; 2021-09-30 07:45)
DX: E06.3 Autoimmune thyroiditis (principal); J45.909 Unspecified asthma, uncomplicated; I10 Essential (primary) hypertension; K21.9 Gastro-esophageal reflux disease without esophagitis; J45.20 Mild intermittent asthma, uncomplicated; R73.03 Prediabetes; D64.9 Anemia, unspecified; F41.8 Other specified anxiety disorders; E78.5 Hyperlipidemia, unspecified; Z79.51 Long term (current) use of inhaled steroids; F12.90 Cannabis use, unspecified, uncomplicated; E66.01 Morbid (severe) obesity due to excess calories; Z68.41 Body mass index [BMI] 40.0-44.9, adult
CPT/HCPCS: 60220; 88104; 88108; 88305; 88307; A9270; J0330; J0690; J1100; J2250; J2405; J2704; J3010; J7120

== ENCOUNTER 2021-11-01 12:15 | Outpatient (CLI) | payer BC, SELFPAY | END 2021-11-01 12:16 | disposition home or self-care (01) | LOC: ANHLAB 12:16 | PROVIDERS: PCP Internal Medicine; Visit Provider Otolaryngology | DX: E03.9 Hypothyroidism, unspecified (principal) | CPT/HCPCS: 36415; 84443 ==

== ENCOUNTER → 2021-11-18 14:13 | Outpatient (CLI) | payer BC, SELFPAY ==
--- NOTE | ~2021-11-18 | XR_ITS ---
XR abdomen/kub 1V 11/18/2021 14:57 INDICATION: Microscopic hematuria TECHNIQUE: KUB COMPARISON: 04/14/2018 FINDINGS: Bowel gas pattern is normal. There are cholecystectomy clips. There is no evidence of free air, mass, organomegaly, ascites or obstruction. No abnormal calculi are seen. The bones appear int act. 2 IUDs are present in the pelvis. There are multiple pelvic phleboliths. IMPRESSION: 1: No acute abdominal abnormality identified. 2: 2 separate IUDs present in the pelvis. Reviewed, dictated and finalized at location A.
--- NOTE | ~2021-11-18 | US_ITS ---
EXAMINATION: US renal BI DATE: 11/18/2021 14:41 INDICATION: Microscopic hematuria and proteinuria TECHNIQUE: Multiple ultrasound grayscale images of the kidneys were obtained. COMPARISON: None. FINDINGS: The right kidney measures 10.6 x 5.3 x 6.9 cm. The left kidney measures 10.7 x 4.9 x 6.3 cm. The kidn eys demonstrate normal echogenicity. There is no hydronephrosis in either kidney. No stones identifi ed. The bladder is normal. IMPRESSION: 1. Normal kidneys without hydronephrosis. Reviewed, dictated and finalized at location B.
== END ==
PROVIDERS: PCP Internal Medicine; Visit Provider Internal Medicine
DX: R31.29 Other microscopic hematuria (principal); R80.9 Proteinuria, unspecified; Z97.5 Presence of (intrauterine) contraceptive device
CPT/HCPCS: 74018; 76775

== ENCOUNTER 2022-01-21 14:08 | Outpatient (CLI) | payer BC, SELFPAY ==
[2022-01-21 15:28] LABS: Albumin Level 4.2 g/dL (3.5-5.1); Anion Gap 8 mmol/L (8-16); Blood Urea Nitrogen 7 mg/dL (7-17); Calcium 9.3 mg/dL (8.4-10.2); Carbon Dioxide 30 mmol/L (22-30); Chloride 100 mmol/L (98-107); Estimated Glomerular Filt Rate 59; Glucose 100 mg/dL (65-110); Phosphorus 3.6 mg/dL (2.5-4.5); Potassium 4.3 mmol/L (3.4-5.0); Sodium 138 mmol/L (137-145)
[2022-01-21 15:29] LABS: Appearance Urine Clear (Clear); Bilirubin Urine Negative (Negative); Blood Urine 2+ (Negative); Color Urine Yellow (Yellow); Glucose Urine UA Negative (Negative); Ketones Urine Negative (Negative); Leukocyte Esterase Ur Negative LEU/UL (NEGATIVE); Nitrate Urine Negative (Negative); Protein Urine 1+ mg/dL (Negative); Specific Grav Ur 1.015 (1.001-1.035); Urobilinogen Urine 0.2 mg/dL (<2.0); pH Urine 8.5 (5.0-9.0)
[2022-01-21 15:35] LABS: Complement C3 152 mg/dL (88-165)
[2022-01-21 15:44] LABS: Squamous Epithelial Cell Urine Occasional /hpf (Few); WBC Urine 0-3 /hpf (0-3)
[2022-01-21 15:47] LABS: Add Urine Microscopic? YES
[2022-01-21 16:48] LABS: Creatinine Urine 45.1 mg/dL; Total Protein Urine Random 39 mg/dL; Ur Ttl Prot Creatinine Ratio 0.86 mg/mg (0-0.20)
[2022-01-26 07:27] LABS: Albumin 3.9 g/dL (3.8-4.8); Alpha 1 Globulin 0.3 g/dL (0.2-0.3); Alpha 2 Globulin 0.7 g/dL (0.5-0.9); Beta 1 Globulin 0.5 g/dL (0.4-0.6); Gamma Globulin 0.9 g/dL (0.8-1.7); Protein, Total 6.7 g/dL (6.1-8.1)
[2022-01-27 19:49] LABS: Anti Glomerular Basement Memb <1.0 AI (<1.0)
[2022-01-29 21:42] LABS: ANCA Screen Negative (Negative)
== END 2022-01-21 14:09 | disposition home or self-care (01) ==
LOC: ANHLAB 14:16
PROVIDERS: PCP Internal Medicine; Visit Provider Internal Medicine Nephrology
DX: R80.8 Other proteinuria (principal); R31.29 Other microscopic hematuria
CPT/HCPCS: 36415; 80069; 81001; 82570; 83520; 84155; 84156; 84165; 86036; 86038; 86160; 86225

== ENCOUNTER → 2022-05-20 16:49 | Outpatient (CLI) | payer OTHER, SELFPAY ==
--- NOTE | ~2022-05-20 | MM_ITS ---
EXAMINATION: MM screening [facility] BI w moriah HISTORY: Screening mammogram TECHNIQUE: Craniocaudal and mediolateral oblique 3-D tomosynthesis images were obtained and synthetic 2-D images were generated. CAD analysis was submitted and interpreted. COMPARISON: 12/27/2020, 04/27/2018, 03/09/2012 BREAST PARENCHYMAL COMPOSITION: The breasts are almost entirely fatty. FINDINGS: No suspicious mass, calcification, or architectural distortion are identified in either sherif ast to suggest malignancy. There has been no suspicious interval change. IMPRESSION: 1. No mammographic evidence of malignancy. 2. Recommend routine screening mammography in one year. BI-RADS Category 1: Negative Reviewed, dictated and finalized at location A. ROOM HAND
== END ==
PROVIDERS: PCP Student in an Organized Health Care Education/Training Program; Visit Provider Student in an Organized Health Care Education/Training Program
DX: Z12.31 Encounter for screening mammogram for malignant neoplasm of breast (principal)
CPT/HCPCS: 77063; 77067

== ENCOUNTER 2022-07-16 11:57 | Outpatient (CLI) | payer OTHER, SELFPAY ==
[2022-07-16 12:28] LABS: Albumin Level 4.2 g/dL (3.5-5.1); Anion Gap 5 mmol/L (8-16); Blood Urea Nitrogen 9 mg/dL (7-17); Calcium 8.7 mg/dL (8.4-10.2); Carbon Dioxide 30 mmol/L (22-30); Chloride 97 mmol/L (98-107); Estimated Glomerular Filt Rate 59; Glucose 243 mg/dL (65-110); Phosphorus 3.1 mg/dL (2.5-4.5); Potassium 3.6 mmol/L (3.4-5.0); Sodium 132 mmol/L (137-145)
[2022-07-16 12:29] LABS: Creatinine Urine 33.5 mg/dL; Total Protein Urine Random 25 mg/dL; Ur Ttl Prot Creatinine Ratio 0.75 mg/mg (0-0.20)
== END 2022-07-16 11:58 | disposition home or self-care (01) ==
LOC: ANHLAB 12:00
PROVIDERS: PCP Student in an Organized Health Care Education/Training Program; Visit Provider Internal Medicine Nephrology
DX: R80.8 Other proteinuria (principal)
CPT/HCPCS: 36415; 80069; 82570; 84156

== ENCOUNTER 2022-11-14 09:53 | Outpatient (CLI) | payer OTHER, SELFPAY ==
[2022-11-14 10:38] LABS: Albumin Level 4.2 g/dL (3.5-5.1); Anion Gap 8 mmol/L (8-16); Blood Urea Nitrogen 18 mg/dL (7-17); Calcium 9.1 mg/dL (8.4-10.2); Carbon Dioxide 27 mmol/L (22-30); Chloride 103 mmol/L (98-107); Estimated Glomerular Filt Rate 59; Glucose 126 mg/dL (65-110); Phosphorus 4.7 mg/dL (2.5-4.5); Potassium 4.6 mmol/L (3.4-5.0); Sodium 138 mmol/L (137-145)
[2022-11-14 11:21] LABS: Appearance Urine Clear (Clear); Bacteria Urine None Seen /hpf; Bilirubin Urine Negative (Negative); Blood Urine 2+ (Negative); Color Urine Yellow (Yellow); Glucose Urine UA Negative (Negative); Ketones Urine Negative (Negative); Leukocyte Esterase Ur Trace LEU/UL (NEGATIVE); Nitrate Urine Negative (Negative); Non Pathogenic Casts 0-2; Protein Urine Negative (Negative); Specific Grav Ur 1.015 (1.001-1.035); Squamous Epithelial Cell Urine Occasional /hpf (Few); Urobilinogen Urine 0.2 mg/dL (<2.0); WBC Urine 0-5 /hpf (0-3); pH Urine 5.5 (5.0-9.0)
[2022-11-14 11:39] LABS: Add Urine Microscopic? YES
[2022-11-14 14:17] LABS: Creatinine Urine 77.5 mg/dL; Total Protein Urine Random 13 mg/dL; Ur Ttl Prot Creatinine Ratio 0.17 mg/mg (0-0.20)
== END 2022-11-14 09:54 | disposition home or self-care (01) ==
PROVIDERS: PCP Student in an Organized Health Care Education/Training Program; Visit Provider Internal Medicine Nephrology
DX: R31.29 Other microscopic hematuria (principal); R80.9 Proteinuria, unspecified
CPT/HCPCS: 36415; 80069; 81001; 82570; 84156

== ENCOUNTER 2022-11-20 00:17 | Day surgery (SDC) | payer OTHER, SELFPAY ==
[2022-11-06 09:57] VITALS: BMI 42.0
[2022-11-20 08:39] VITALS: BP 137/90; PULSE 74; RESP 20; TEMP 36.2; O2SAT 99; BMI 40.8
[2022-11-20] MEDS: LACTATED RINGERS 1,000 ML 150 ML IV CONT (08:50)
--- NOTE | 2022-11-20 09:04 | WPDANESEPPF ---
Anes - Initial Pre Proc Eval Procedure: Operation Date: 11/20/22 09:30 Proposed Procedures p Esophagogastroduodenoscopy & Screening Colonoscopy - Nikhil Hernandez MD Date/Time: 11/20/22 09:04 Surgeon: Nikhil Hernandez MD Pre Op Diagnosis: neoplasm screening, GERD Patient Data Age: 51 Gender: F Height: 1.68 m Weight: 114.9 kg Last Vital Signs Temp 97.2 F L 11/20/22 08:39 Pulse 74 11/20/22 08:39 Resp 20 11/20/22 08:39 BP 137/90 11/20/22 08:39 Pulse Ox 99 11/20/22 08:39 O2 Del Method Room Air 11/20/22 08:39 Allergies Allergy/AdvReac Type Severity Reaction Status Date / Time adhesive AdvReac Redness of Verified 11/20/22 08:37 Skin Home Medications Medication Instructions Recorded Confirmed Type escitalopram oxalate 10 mg tablet 20 mg PO HS 04/05/20 11/17/22 History (Lexapro) triamcinolone acetonide 55 mcg 2 spray intranasal DAILY 06/04/20 11/17/22 History nasal spray aerosol (Nasacort) levocetirizine 5 mg tablet (Xyzal) 5 mg PO DAILY 12/17/20 11/17/22 History omeprazole 40 mg capsule,delayed 40 mg PO DAILY #90 caps 04/22/21 11/17/22 Rx release Lacto.acidophilus-Bif.animalis 1 cap PO DAILY 08/18/21 11/17/22 History [Daily Probiotic] albuterol sulfate 90 mcg/actuation 1 puff inhalation Q4H PRN 08/18/21 11/17/22 History aerosol inhaler (ProAir HFA) Bronchospasm diphenhydramine HCl 25 mg capsule 50 mg PO HS 08/18/21 11/17/22 History (Benadryl) fluticasone furoate 200 1 inh inhalation DAILY #60 ea 08/18/21 11/17/22 Rx mcg-vilanterol 25 mcg/dose inhalation powder (Breo Ellipta) lisinopril 20 mg tablet 20 mg PO DAILY #90 tabs 12/30/21 11/17/22 Rx levothyroxine 25 mcg tablet See Rx Instructions .Route 04/14/22 11/17/22 Rx .COMPLEX #30 tabs metformin 500 mg tablet,extended 500 mg PO BID 11/06/22 11/17/22 History release 24 hr metronidazole 500 mg tablet 500 mg PO Q8H 11/17/22 11/20/22 History tetracycline 500 mg capsule 500 mg PO Q6H 11/17/22 11/20/22 History bismuth subsalicylate 262 mg/15 mL 524 mg PO Q1H PRN Indigestion 11/20/22 11/20/22 History oral suspension (Pepto-Bismol) Patient hx anesthesia problems: none Family hx anesthesia problems: none Results Review: All pre-operative results and documents have been reviewed as part of the pre-operative evaluation. [facility] Past Medical History Medical History (Updated 11/17/22 @ 14:26 by Efren Gill MD) 2019 novel coronavirus disease (COVID-19) 03/2020 Anxiety Asthma Depression Dyslipidemia Environmental allergies Essential (primary) hypertension GERD without esophagitis History of pancreatitis Lactose intolerance Mild intermittent asthma without complication Multinodular goiter Pre-diabetes Surgical History Surgical History (Updated 02/20/22 @ 14:13 by Marisela Wallace [facility]) H/O oophorectomy (~2012) 2013 - left due to recurrent cyst H/O partial thyroidectomy History of abdominoplasty History of breast lift History of cholecystectomy (~1999) 1999 History of tonsillectomy 1978 Hx of section (~1997) 1998 Hx of dilation and curettage (~1995) x2 - 1995 Family History Family History Mother Hypertension Family history of diabetes mellitus in first degree relative Asthma Diabetes mellitus Depression Father Family history of diabetes mellitus in first degree relative Asthma Diabetes mellitus Hypertension Depression Sibling Asthma Depression Grandparent Diabetes mellitus Hypertension Cerebrovascular accident Grandparent Diabetes mellitus Heart disease Alcoholism Depression Cerebrovascular accident Social History Social History (Updated 11/17/22 @ 14:13 by Cuca Beauchamp MA) Smoking status: Never smoker Second hand tobacco smoke exposure: No Alcohol intake: current Alcohol use details: seldom Substance use: never Substance us
--- NOTE | 2022-11-20 09:08 | PM.HPGS ---
History of Present Illness History of Present Illness Consent: Risks, benefits, and alternatives have been discussed and questions answered. Patient agrees to proceed with procedure. Chief complaint: neoplasm screening, GERD Narrative: Brandy Ross is a 51 year old female with dyspepsia and nausea, about 1 week ago diagnosed with h pylori using stool test and started on treatment (she has few more days to take), never had egd or colonoscopy Review of Systems Constitutional: Constitutional: Denies headache(s) and Denies weakness Eyes: Eyes: Denies blurry vision ENT: Reports Normal hearing present, Denies headache(s) and Denies neck pain Cardiovascular: Cardiovascular: Denies chest pain and Denies dyspnea Respiratory: Respiratory: Denies dyspnea Gastrointestinal: Gastrointestinal: Reports no additional gastrointestinal complaints Genitourinary: Genitourinary: Denies dysuria Musculoskeletal: Musculoskeletal: Denies neck pain Integumentary/Breasts: Skin/Breast: Denies dry skin Neurologic: Reports Normal hearing present, Denies headache(s) and Denies weakness Psychiatric: Psychiatric: Denies anxiety Endocrine: Endocrine: Denies change in body appearance Hematologic/Lymphatic: Hematologic/Lymphatic: Denies easy bleeding Allergic/Immunologic: Allergic/Immunologic: Denies urticaria PMFSH Past Medical History Medical History (Updated 11/20/22 @ 09:10 by Nikhil Hernandez MD) 2019 novel coronavirus disease (COVID-19) 03/2020 Anxiety Asthma Colon cancer screening Depression Dyslipidemia Environmental allergies Essential (primary) hypertension GERD without esophagitis Helicobacter pylori (H. pylori) infection History of pancreatitis Lactose intolerance Mild intermittent asthma without complication Multinodular goiter Pre-diabetes Surgical History Surgical History (Updated 02/20/22 @ 14:13 by Marisela Wallace CMA) H/O oophorectomy (~2012) 2013 - left due to recurrent cyst H/O partial thyroidectomy History of abdominoplasty History of breast lift History of cholecystectomy (~1999) 1999 History of tonsillectomy 1978 Hx of section (~1997) 1998 Hx of dilation and curettage (~1995) x2 - 1996 Family History Family History Mother Hypertension Family history of diabetes mellitus in first degree relative Asthma Diabetes mellitus Depression Father Family history of diabetes mellitus in first degree relative Asthma Diabetes mellitus Hypertension Depression Sibling Asthma Depression Grandparent Diabetes mellitus Hypertension Cerebrovascular accident Grandparent Diabetes mellitus Heart disease Alcoholism Depression Cerebrovascular accident Social History Social History (Updated 11/17/22 @ 14:13 by Cuca Beauchamp MA) Smoking status: Never smoker Second hand tobacco smoke exposure: No Alcohol intake: current Alcohol use details: seldom Substance use: never Substance use type: does not use Other substance usage details: EDIBLES AT NIGHT Lack of Transportation: No Lack of Food: Never True Current Housing: I Have Housing Concerned About Future Housing: No Difficulty Paying Gas/Electric Bills: No Difficulty Paying for Meds: No Currently Unemployed: No Education: High School Diploma/GED Difficulty w/ Childcare or Family Care: No Living arrangements: with family Gender identity (if verbalized by the patient): Female Spiritual care concerns: No Meds Home Medications and Allergies Home Medications Medication Instructions Recorded Confirmed Type escitalopram oxalate 10 mg tablet 20 mg PO HS 04/05/20 11/17/22 History (Lexapro) triamcinolone acetonide 55 mcg 2 spray intranasal DAILY 06/04/20 11/17/22 History nasal spray aerosol (Nasacort) levocetirizine 5 mg tablet (Xyzal) 5 mg PO DAILY 12/17/20 11/17/22 History omeprazole 40 mg capsule
[2022-11-20 09:17] LABS: Glucose Point of Care 169 mg/dl (65-105)
--- NOTE | 2022-11-20 09:32 | SUR.OPER ---
EGD END TIME: 922 COLON START TIME: 926
[2022-11-20 09:42] VITALS: BP 109/68; PULSE 74; RESP 19; O2SAT 95
[2022-11-20 09:52] VITALS: BP 113/71; PULSE 68; RESP 19; O2SAT 97
[2022-11-20 10:02] VITALS: BP 121/79; PULSE 65; RESP 18; O2SAT 98
== END 2022-11-20 10:15 | disposition home or self-care (01) ==
PROVIDERS: PCP Internal Medicine; Visit Provider Internal Medicine Gastroenterology
PROC: 0DJ08ZZ Inspection of Upper Intestinal Tract, Via Natural or Artificial Opening Endoscopic (ICD-10-PCS; CPT 43235; principal; 2022-11-20 09:30)
DX: Z12.11 Encounter for screening for malignant neoplasm of colon (principal); D12.4 Benign neoplasm of descending colon; K63.5 Polyp of colon; K64.8 Other hemorrhoids; K44.9 Diaphragmatic hernia without obstruction or gangrene; K29.50 Unspecified chronic gastritis without bleeding; K21.9 Gastro-esophageal reflux disease without esophagitis; B96.81 Helicobacter pylori [H. pylori] as the cause of diseases classified elsewhere; I10 Essential (primary) hypertension; R73.03 Prediabetes; J45.20 Mild intermittent asthma, uncomplicated; E78.5 Hyperlipidemia, unspecified; F41.9 Anxiety disorder, unspecified; F32.A Depression, unspecified; E89.0 Postprocedural hypothyroidism; Z79.51 Long term (current) use of inhaled steroids; Z79.84 Long term (current) use of oral hypoglycemic drugs; E66.01 Morbid (severe) obesity due to excess calories; Z68.41 Body mass index [BMI] 40.0-44.9, adult
CPT/HCPCS: 45385; 43239; 82948; 88305; J2704; J7120

== ENCOUNTER 2023-04-26 10:02 | Outpatient (CLI) | payer OTHER, SELFPAY ==
[2023-04-26 10:36] LABS: Creatinine Urine 246.1 mg/dL; Total Protein Urine Random 31 mg/dL; Ur Ttl Prot Creatinine Ratio 0.13 mg/mg (0-0.20)
[2023-04-26 10:38] LABS: Appearance Urine Cloudy (Clear); Bacteria Urine Rare /hpf; Bilirubin Urine Negative (Negative); Blood Urine 2+ (Negative); Color Urine Yellow (Yellow); Glucose Urine UA Negative (Negative); Ketones Urine Negative (Negative); Leukocyte Esterase Ur 1+ LEU/UL (NEGATIVE); Need Manual Microscopic Reviewed; Nitrate Urine Negative (Negative); Non Pathogenic Casts 0-2; Protein Urine 1+ mg/dL (Negative); RBC Urine 21-50 /hpf (0-2); Specific Grav Ur 1.022 (1.001-1.035); Squamous Epithelial Cell Urine Moderate /hpf (Few); WBC Urine 0-5 /hpf (0-3); pH Urine 5.5 (5.0-9.0)
[2023-04-26 10:51] LABS: Albumin Level 4.1 g/dL (3.5-5.1); Anion Gap 6 mmol/L (8-16); Blood Urea Nitrogen 16 mg/dL (7-17); Calcium 9.1 mg/dL (8.4-10.2); Carbon Dioxide 28 mmol/L (22-30); Chloride 102 mmol/L (98-107); Estimated Glomerular Filt Rate 53; Glucose 116 mg/dL (65-110); Phosphorus 3.5 mg/dL (2.5-4.5); Potassium 4.5 mmol/L (3.4-5.0); Sodium 136 mmol/L (137-145)
[2023-04-26 10:59] LABS: Add Urine Microscopic? YES
== END 2023-04-26 10:03 | disposition home or self-care (01) ==
LOC: ANHLAB 10:03
PROVIDERS: PCP Internal Medicine; Visit Provider Internal Medicine Nephrology
DX: R31.29 Other microscopic hematuria (principal); R80.9 Proteinuria, unspecified
CPT/HCPCS: 36415; 80069; 81001; 82570; 84156

== ENCOUNTER 2023-09-12 15:54 | Emergency (ER) | payer OTHER, SELFPAY ==
--- NOTE | ~2023-09-12 | XR_ITS ---
EXAMINATION: XR chest 2V Exam Date/Time: 09/12/2023 17:08 CDT HISTORY: cough Comparison: 04/05/2020. RESULT: Lines, tubes, and devices: None. Lungs and pleura: Clear. Cardiomediastinal silhouette: Stable. Other: No acute osseous or upper abdominal finding. IMPRESSION: No acute cardiopulmonary process. Reviewed, dictated and finalized at location K.
[2023-09-12 16:00] VITALS: BP 174/93; PULSE 88; RESP 22; TEMP 36.5; O2SAT 98
--- NOTE | 2023-09-12 16:43 | ECG_ITS ---
Measurements Intervals Victor Rate: 89 P: 57 ND: 149 QRS: -32 QRSD: 89 T: 35 QT: 333 QTc: 406 Interpretive Statements SINUS RHYTHM LEFT AXIS DEVIATION DELAYED PRECORDIAL R/S TRANSITION BORDERLINE T WAVE ABNORMALITY- INFERIOR LEADS BORDERLINE ECG COMPARED TO ECG 09/29/2021 08:16:30 LEFT-AXIS DEVIATION NOW PRESENT Electronically Signed On 09-12-2023 17:06:15 CDT by Germain Duenas D.O.
--- NOTE | 2023-09-12 16:43 | ED.URI ---
HPI - URI/Sore Throat General Chief Complaint: Upper Respiratory Infection Stated Complaint: uri Time Seen by Provider: 09/12/23 16:33 History of Present Illness HPI Narrative: 52-year-old female with history of asthma, hypertension, dyslipidemia and GERD presents to the emergency department for cough, congestion and fatigue the past 2 days. Patient states 2 days ago she woke up in the middle the night coughing secondary to her GERD. States she felt her throat and chest consistent with her reflux. Her coughing induced her to vomit and she is concerned that she aspirated during that time. States yesterday she felt fatigued and today she is having a productive cough. She denies known fever but does endorse chills. Denies chest pain, abdominal pain, dysuria. patient states she has some shortness of breath, denies lower extremity edema and hemoptysis. Patient states she has noticed some rattling in her chest and is unsure if this is related to aspiration versus her asthma. States she has been taking her heel over some relief. Related Data Home Medications Medication Instructions Recorded Confirmed triamcinolone acetonide 55 mcg 2 spray intranasal DAILY 06/04/20 11/17/22 nasal spray aerosol (Nasacort) levocetirizine 5 mg tablet (Xyzal) 5 mg PO DAILY 12/17/20 11/17/22 Lacto.acidophilus-Bif.animalis 1 cap PO DAILY 08/18/21 11/17/22 [Daily Probiotic] albuterol sulfate 90 mcg/actuation 1 puff inhalation Q4H PRN 08/18/21 11/17/22 aerosol inhaler (ProAir HFA) Bronchospasm diphenhydramine HCl 25 mg capsule 50 mg PO HS 08/18/21 11/17/22 (Benadryl) metformin 500 mg tablet,extended 500 mg PO BID 11/06/22 11/17/22 release 24 hr escitalopram oxalate 10 mg tablet 20 mg PO HS 11/27/22 (Lexapro) levonorgestrel 21 mcg/24 hours (8 1 device intrauterine ONCE 02/23/23 yrs) 52 mg intrauterine device (Mirena) Allergies Allergy/AdvReac Type Severity Reaction Status Date / Time adhesive AdvReac Redness of Verified 02/23/23 11:06 Skin Review of Systems Review of Systems: CONSTITUTIONAL: see HPI EYES: Denies visual changes, redness, or discharge. ENT: Denies rhinorrhea, congestion, sore throat, or otalgia. CARDIOVASCULAR: Denies chest pain, palpitations, or edema. RESPIRATORY: See HPI GASTROINTESTINAL: Denies abdominal pain, nausea, vomiting, or diarrhea. GENITOURINARY: Denies dysuria or hematuria. SKIN: Denies rash or itching. MUSCULOSKELETAL: Denies back pain, joint pain, or myalgia. NEUROLOGIC: Denies headache, numbness, or weakness. PSYCHIATRIC: Denies anxiety or depression. [facility] Past Medical History Medical History 2019 novel coronavirus disease (COVID-19) 03/2020 Anxiety Asthma Colon cancer screening Depression Diabetes Dyslipidemia Environmental allergies Essential (primary) hypertension GERD without esophagitis Helicobacter pylori (H. pylori) infection History of pancreatitis Lactose intolerance Mild intermittent asthma without complication Multinodular goiter Pre-diabetes Surgical History Surgical History H/O oophorectomy (~2012) 2013 - left due to recurrent cyst H/O partial thyroidectomy History of abdominoplasty History of breast lift History of cholecystectomy (~1999) 1999 History of tonsillectomy 1978 Hx of section (~1997) 1998 Hx of dilation and curettage (~1995) x2 - 1996 Family History Family History Mother Hypertension Family history of diabetes mellitus in first degree relative Asthma Diabetes mellitus Depression Father Family history of diabetes mellitus in first degree relative Asthma Diabetes mellitus Hypertension Depression Sibling Asthma Depression Grandparent Diabetes mellitus Hypertension Cerebrovascular accident Grandparent Diabetes mellitus Hea
[2023-09-12 16:47] VITALS: O2SAT 98
[2023-09-12 17:08] LABS: Add Urine Microscopic? YES; Color Urine Yellow (Yellow)
[2023-09-12 17:09] LABS: Appearance Urine Clear (Clear); Bacteria Urine None Seen /hpf; Bilirubin Urine Negative (Negative); Blood Urine 2+ (Negative); Glucose Urine UA Negative (Negative); Ketones Urine Negative (Negative); Leukocyte Esterase Ur Negative LEU/UL (Negative); Nitrate Urine Negative (Negative); Non Pathogenic Casts 0-2; Protein Urine 2+ mg/dL (Negative); Specific Grav Ur 1.015 (1.001-1.035); Squamous Epithelial Cell Urine Occasional /hpf (Few); Urobilinogen Urine 0.2 mg/dL (<2.0); WBC Urine 0-5 /hpf (0-3)
[2023-09-12 17:36] LABS: Influenza A QL RT-PCR Positive (Negative); Influenza B QL RT-PCR Negative (Negative); RSV RNA, RT-PCR Negative (Negative); SARS-CoV-2 RNA PCR Negative (Negative)
[2023-09-12] MEDS: ACETAMINOPHEN 500 MG TABLET 1000 MG PO (18:17)
[2023-09-12] MEDS: IBUPROFEN 400 MG TABLET 800 MG PO (18:17)
[2023-09-12 18:20] VITALS: BP 168/89; PULSE 89; RESP 20; O2SAT 99
== END 2023-09-12 18:21 | disposition home or self-care (01) ==
PROVIDERS: Emergency Provider Physician Assistant; PCP Internal Medicine
DX: J10.1 Influenza due to other identified influenza virus with other respiratory manifestations (principal); I10 Essential (primary) hypertension; E78.5 Hyperlipidemia, unspecified; E89.0 Postprocedural hypothyroidism; J45.20 Mild intermittent asthma, uncomplicated; K21.9 Gastro-esophageal reflux disease without esophagitis; Z90.49 Acquired absence of other specified parts of digestive tract; Z79.84 Long term (current) use of oral hypoglycemic drugs; R94.31 Abnormal electrocardiogram [ECG] [EKG]
CPT/HCPCS: 71046; 81001; 81025; 87637; 93005; 99283; A9270

== ENCOUNTER 2024-01-28 14:59 | Outpatient (CLI) | payer OTHER, SELFPAY ==
--- NOTE | ~2024-01-28 | MM_ITS ---
EXAMINATION: MM screening [facility] BI w moriah HISTORY: Screening TECHNIQUE: Craniocaudal and mediolateral oblique 3-D tomosynthesis images were obtained and synthetic 2-D images were generated. CAD analysis was submitted and interpreted. COMPARISON: Comparison to multiple prior studies sequentially, with oldest reviewed study dated 12/2017. BREAST PARENCHYMAL COMPOSITION: Not Dense. The breasts are almost entirely fatty. FINDINGS: There is no evidence of suspicious mass, calcification, or architectural distortion to sugg est malignancy in either breast. There has been no suspicious interval change. IMPRESSION: 1. No mammographic evidence of malignancy. 2. Recommend routine screening mammography in one year. BI-RADS Category 1: Negative Reviewed, dictated and finalized at location B.
== END 2024-01-28 15:00 ==
LOC: MICIMG 15:00
PROVIDERS: PCP Internal Medicine; Visit Provider Internal Medicine
DX: Z12.31 Encounter for screening mammogram for malignant neoplasm of breast (principal)
CPT/HCPCS: 77063; 77067

== ENCOUNTER 2024-01-29 11:44 | Outpatient (CLI) | payer OTHER, SELFPAY ==
[2024-01-29 12:26] LABS: Alanine Aminotransferase 18 U/L (6-35); Albumin Level 3.7 g/dL (3.5-5.1); Alkaline Phosphatase 57 U/L (38-126); Anion Gap 7 mmol/L (4-12); Aspartate Amino Transferase 17 U/L (14-36); Bilirubin,Total 0.5 mg/dL (0.2-1.3); Blood Urea Nitrogen 18 mg/dL (7-17); Carbon Dioxide 30 mmol/L (22-30); Chloride 100 mmol/L (98-107); Cholesterol 208 mg/dL (0-200); Estimated Glomerular Filt Rate 52; Glucose 98 mg/dL (65-110); HDL Direct 92 mg/dL; Potassium 4.3 mmol/L (3.4-5.0); Sodium 137 mmol/L (137-145); Triglycerides 109 mg/dL (<150)
[2024-01-29 12:37] LABS: LDL Cholesterol Direct 88 mg/dL
[2024-01-29 13:06] LABS: Hemoglobin A1C 6.4 % (<5.7)
[2024-01-29 13:15] LABS: Vitamin D 25 Hydroxy 53.4 ng/mL
[2024-01-31 11:49] LABS: Creatinine Urine 68.1 mg/dL; MALB Creatinine Ratio 82.2 mg/g (0-30)
[2024-02-02 13:03] LABS: Vitamin D 1,25 (OH)2 Total 48 pg/mL (18-72); Vitamin D2 1,25 (OH)2 <8 pg/mL; Vitamin D3 1,25 (OH)2 48 pg/mL
== END 2024-01-29 11:45 | disposition home or self-care (01) ==
LOC: ANHLAB 11:51
PROVIDERS: PCP Internal Medicine; Visit Provider Internal Medicine
DX: Z00.00 Encounter for general adult medical examination without abnormal findings (principal); R31.29 Other microscopic hematuria; E55.9 Vitamin D deficiency, unspecified; E03.9 Hypothyroidism, unspecified; E78.5 Hyperlipidemia, unspecified; E11.9 Type 2 diabetes mellitus without complications
CPT/HCPCS: 36415; 80053; 80061; 82043; 82306; 82652; 83036; 84443

== ENCOUNTER 2024-02-15 11:25 | Outpatient (CLI) | payer OTHER, SELFPAY ==
--- NOTE | ~2024-02-15 | XR_ITS ---
Clinical Indication: Asthma PA and lateral views of the chest: Comparison: 09/12/2023 Findings: The lungs are clear, without evidence of focal consolidation or pleural effusion. Cardiome diastinal silhouette is within normal limits. Bones and soft tissues are unremarkable. Impression: Normal chest. Reviewed, dictated and finalized at location . Impression: Normal chest.
== END 2024-02-15 11:26 ==
PROVIDERS: PCP Internal Medicine
DX: J45.51 Severe persistent asthma with (acute) exacerbation (principal)
CPT/HCPCS: 71046

== ENCOUNTER 2024-08-31 11:40 | Outpatient (CLI) | payer OTHER, SELFPAY ==
[2024-08-31 12:05] LABS: Hematocrit 37.9 % (37.0-47.0); Hemoglobin 12.4 g/dL (12.0-15.0); Mean Corpuscular HGB Conc 32.7 g/dl (32-36); Mean Corpuscular Hemoglobin 28.9 pg (26-34); Mean Corpuscular Volume 88.3 fl (80-100); Mean Platelet Volume 9.5 fl (7.4-10.4); Platelet Count Result 285 k/mm3 (150-375); Red Blood Count 4.29 M/mm3 (4.2-5.4); Red Cell Distribution Width 13.9 % (11.5-14.5); White Blood Count 8.8 K/mm3 (4.5-10.0)
[2024-08-31 12:22] LABS: Alanine Aminotransferase 26 U/L (6-35); Albumin Level 4.1 g/dL (3.5-5.1); Alkaline Phosphatase 74 U/L (38-126); Amylase 65 U/L (30-110); Anion Gap 7 mmol/L (4-12); Aspartate Amino Transferase 25 U/L (14-36); Bilirubin,Total 0.5 mg/dL (0.2-1.3); Blood Urea Nitrogen 11 mg/dL (7-17); Calcium 9.4 mg/dL (8.4-10.2); Carbon Dioxide 31 mmol/L (22-30); Chloride 103 mmol/L (98-107); Estimated Glomerular Filt Rate > 60; Glucose 91 mg/dL (65-110); Lipase 177 U/L (23-300); Potassium 4.5 mmol/L (3.4-5.0); Sodium 141 mmol/L (137-145)
--- OUTSIDE RECORDS SUMMARY | 2024-08-31 13:31 | XMS_ITS | Clinical Summary ---
Author Organization [facility] Address [address] [place] [address] Care Team Providers Care Blueprint Reader Name Role Phone Devi George MD Primary Care Provider [phone] Source Comments [facility],non-owned Affiliates and Associated Physician Practices is amultiple site organization consisting of ambulatory clinics and hospital sitesin [place], [place], [place] and [place]. This disclosure is being madepursuant to the Care Everywhere program and may not contain all information available regarding this patient. Last updated 18.[facility] Allergies No known active allergies Immunizations Name Administration Dates Next Due TDAP (7yrs+) 08/22/2018 Social History Tobacco Use Types Packs/Day Years Used Date Smoking Tobacco: Never Assessed Sex and Gender Information Value Date Recorded Sex Assigned at Not on file Gender Identity Not on file Sexual Orientation Not on file Plan of Treatment Health Maintenance Due Date Last Done Comments COLOGUARD (AGES 45-75) - COL ON CA SCREENING 1972 COLON MONITORING 1972 COLONOSCOPY - COLON CA SCREENING 1972 CT COLONOGRAPHY - COLON CA SCREENING 1972 Colorectal Cancer Screening 1972 FIT - COLON CA SCREENING 1972 FLEX SIG - COLON CA SCREENING 1972 LIPID TESTING 1972 MAMMOGRAM 1972 PAP SMEAR 1972 HIV SCREENING 12/04/1987 HEPATITIS C SCREENING 11/29/1990 HEPATITIS B VACCINE (1 of 3 - 19+ 3-dose series) 12/04/1991 PNEUMOCOCCAL VACCINE 50+ (1 of 1 - PCV) 2022 ZOSTER VACCINE (1 of 2) 2022 COVID-19 VACCINE (1 - 2023-2 5 season) 2024 INFLUENZA VACCINE (#1) 2024 DEPRESSION SCREENING 06/21/2024 DTAP/TDAP/TD VACCINES (2 - T d or Tdap) 08/22/2028 08/22/2018 HIB VACCINE Aged Out No longer eligi ble based on patient's age to complete this topic HPV VACCINE Aged Out No longer eligi ble based on patient's age to complete this topic MENINGOCOCCAL (Group B) VACC INE SHARED DECISION-MAKING Aged Out No longer eligibl e based on patient's age to complete this topic MENINGOCOCCAL GROUPS A/C/Y/W VACCINE Aged Out No longer eligible b ased on patient's age to complete this topic PNEUMOCOCCAL VACCINE Aged Out No long er eligible based on patient's age to complete this topic Care Teams Blueprint Reader Relationship Specialty Start Date End Date Devi George MD [address] [place] [address] PCP - General 10/01/21
--- OUTSIDE RECORDS SUMMARY | 2024-08-31 13:31 | XMS_ITS | Patient Health Summary ---
Author Organization [facility] Address [address] [place] [address] Care Team Providers Care Furniture Delivery Driver Name Role Phone Devi George MD Primary Care Provider [phone] Note from [facility],non-owned Affiliates and Associated Physician Practices is amultiple site organization consisting of ambulatory clinics and hospital sitesin [place], [place], [place] and [place]. This disclosure is being madepursuant to the Care Everywhere program and may not contain all information available regarding this patient. Last updated 18.[facility] Allergies No known active allergies Immunizations * TDAP (7yrs+)(Given 08/22/2018) Social History Tobacco Use Types Packs/Day Years Used Date Smoking Tobacco: Never Assessed Sex and Gender Information Value Date Recorded Sex Assigned at Not on file Gender Identity Not on file Sexual Orientation Not on file Procedures * DERMATOPATHOLOGY(Performed 09/26/2012) * DERMATOPATHOLOGY(Performed 12/04/2010) Results * PATHOLOGY TISSUE FOR DERMATOLOGY (09/26/2012 12:00 AM CDT) Only the most recent of2 resultswithin the time period is included. Result CASE: [id number] PATIENT: BRANDY MONTENEGRO PATHOLOGIC DIAGNOSIS: A. Left groin: COMPOUND MELANOCYTIC NEVUS B. Left upper outer arm: INTRADERMAL MELANOCYTIC NEVUS CLINICAL DATA: A-B: R/O Dysplastic nevus. GROSS DESCRIPTION: A: Received is one formalin filled container labeled with the patient's name and designated left groin. The specimen consists of a shave biopsy measuring 8x5x1 mm. Jar 0. B: Received is one formalin filled container labeled with the patient's name and designated left upper outer arm. The specimen consists of a shave biopsy measuring 4x3x1 mm. Jar 0. MICROSCOPIC DESCRIPTION: SPECIMEN A: There are nests of melanocytes at the dermal-epiderm al junction and within the dermis. SPECIMEN B: There are nests of melanocytes within the dermis that mature with depth. Final Diagnosis performed by Rosa Barron M.D. Electronically signed 09/28/2012 2:28:37PM [facility] Comment: Performed at: Dermatopathology Laboratory [facility] Department of Dermatology [address] [place] [address], [address] [place] [address] Phone number: [phone] Toll Free: [phone] FAX: [phone] 09/26/2012 09/27/2012 Kye Coles MD LAB - PATHOLOGY/CYTO LOGY ORDERABLES [facility] [address] [place] [address]. 5[address] Lab [address] [phone] Care Teams Furniture Delivery Driver Relationship Specialty Start Date End Date Devi George MD [address] [place] [address] PCP - General 10/01/21
--- OUTSIDE RECORDS SUMMARY | 2024-08-31 13:31 | XMS_ITS | Clinical Summary ---
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 Gender Identity Not on file Sexual Orientation Not on file Plan of Treatment Upcoming Encounters Date Type Department Care Team (Late st Contact Info) Description 09/19/2024 1:20 PM CDT Office Visit [facility] - [place] [address] [address] [place] [address] Corie Shahid MD [address] [place] [address] Health Maintenance Due Date Last Done Comments Cervical Cancer Screening Pa p Smear (Age 30 to 64) Every 3 Years 1972 Colorectal Cancer Screening Colonoscopy (10 Years) 1972 Annual Physical 12/04/1975 Hepatitis C 1990 DTaP, Tdap and Td Vaccines ( 1 - Tdap) 12/04/1991 Hepatitis B Vaccines (1 of 3 - 19+ 3-dose series) 12/04/1991 Cervical Cancer Screening Pa p with HPV Testing (Age 30 to 64) Every 5 Years 2002 Cervical Cancer Screening with HPV 2002 Mammogram Screening 2012 Zoster Vaccines (1 of 2) 2022 COVID-19 Vaccine (2023-2 5 season) 2024 Influenza Adult (#1) 2024 Meningococcal B Vaccine Aged Out No l onger eligible based on patient's age to complete this topic Meningococcal Vaccine Aged Out No luke dio eligible based on patient's age to complete this topic Pneumococcal Vaccine: Pediat rics (0 to 5 Years) and At-Risk Patients (6 to 64 Years) Aged Out No longer eligible b ased on patient's age to complete this topic RSV Immunizations Under 20 Months Aged Out No longer eligible based on patient's age to complete this topic Insurance [facility] Care Teams Dough Molder Relationship Specialty Start Date End Date Corie Shahid MD [address] [address] PCP - General INTERNAL MEDICINE 07/06/24
--- OUTSIDE RECORDS SUMMARY | 2024-08-31 13:31 | XMS_ITS | Referral Summary ---
Author Organization [facility] [facility] Address [address] [place] [address] Care Team Providers Care Post Doc Fellowship Name Role Phone Devi George MD Primary Care Provider [phone] Source Comments [facility],non-owned Affiliates and Associated Physician Practices is amultiple site organization consisting of ambulatory clinics and hospital sitesin [place], [place], [place] and [place]. This disclosure is being madepursuant to the Care Everywhere program and may not contain all information available regarding this patient. Last updated 18.[facility] Allergies No known active allergies Immunizations Name Administration Dates Next Due TDAP (7yrs+) 08/22/2018 Social History Tobacco Use Types Packs/Day Years Used Date Smoking Tobacco: Never Assessed Sex and Gender Information Value Date Recorded Sex Assigned at Not on file Gender Identity Not on file Sexual Orientation Not on file Plan of Treatment Not on file Care Teams Post Doc Fellowship Relationship Specialty Start Date End Date Devi George MD [address] [place] [address] PCP - General 10/01/21
--- OUTSIDE RECORDS SUMMARY | 2024-08-31 13:32 | XMS_ITS | Clinical Summary ---
Author Organization [facility] Address [address] [place] [address] Phone Care Team Providers Care Senior Clinical Study Manager Name Role Phone Devi George MD Primary Care Provider [phone] Allergies Active Allergy Reactions Criticality Noted Date Comments Nickel Itching 12/10/2021 Wound Dressing Adhesive Itching,Rash Low 03/18/2022 Medications Medication Sig Dispensed Refills Start Date End Date Status Cholecalciferol (Vitamin D3) 1.25 MG (85820 UT) capsule Take 1 capsule by mouth 1 (one) time per week 09/30/2021 Active levothyroxine (SYNTHROID) 25 MCG tablet Take 25 mcg by mouth 1 (one) time each day 12/08/2021 Active lisinopril (PRINIVIL) 20 MG tablet 10/01/2021 Active albuterol HFA (PROVENTIL HFA) 108 (90 Base) MCG/ACT inhaler 12/30/2021 Active Breo Ellipta 200-25 MCG/INH inhaler 03/16/2022 Active montelukast (SINGULAIR) 10 MG tablet 01/21/2022 Active omeprazole (PriLOSEC) [address] capsule 01/05/2022 Active escitalopram (LEXAPRO) 20 MG tablet 03/10/2022 Active Active Problems Problem Noted Date Diagnosed Date Serum creatinine raised 12/16/2021 Proteinuria 12/16/2021 Pancreatitis 12/16/2021 Major depressive disorder 12/16/2021 Impaired fasting glycemia 12/16/2021 Hypertension 12/16/2021 Hyperlipidemia 12/16/2021 Hematuria 12/16/2021 Generalized anxiety disorder 12/16/2021 Gastroesophageal reflux disease 12/16/2021 Asthma 12/16/2021 Immunizations Name Administration Dates Next Due Sars-cov-2, Unspecified 09/25/2020 Tdap 08/22/2018 Family History Medical History Relation Comments COPD Father Diabetes mellitus Father Hypertension Father Anxiety Mother Asthma Mother Diabetes mellitus Mother Hypertension Mother Celiac disease Sister Relation Status Comments Father Mother Sister Social History Tobacco Use Types Packs/Day Years Used Date Smoking Tobacco: Never Smokeless Tobacco: Never Alcohol Use Standard Drinks/Week Comments Yes 0 (1 standard drink = 0.6 oz pur e alcohol) occassional use Sex and Gender Information Value Date Recorded Sex Assigned at Not on file Gender Identity Not on file Sexual Orientation Not on file Last Filed Vital Signs Vital Sign Reading Time Taken Comments Blood Pressure 132/74 03/18/2022 4:10 PM CDT Pulse - - Temperature 36.6 C (97.8 F) 03/18/2022 4:10 PM CDT Respiratory Rate 18 03/18/2022 4:10 PM CDT Oxygen Saturation - - Inhaled Oxygen Concentration - - Weight 119 kg (262 lb) 03/18/2022 4:10 PM CDT Height 167.6 cm (5' 6 ) 03/18/2022 4:10 PM CDT Body Mass Index 42.29 03/18/2022 4:10 PM CDT Plan of Treatment Health Maintenance Due Date Last Done Comments Influenza Vaccine (#1) 2024 Care Teams Senior Clinical Study Manager Relationship Specialty Start Date End Date Devi George MD [address] [place] [address] PCP - General Internal Medicine 11/24/21
== END 2024-08-31 11:41 | disposition home or self-care (01) ==
LOC: ANHLAB 11:41
PROVIDERS: PCP Internal Medicine; Visit Provider Nurse Practitioner Family
DX: R10.9 Unspecified abdominal pain (principal)
CPT/HCPCS: 36415; 80053; 82150; 83690; 85027

== ENCOUNTER 2024-09-18 08:37 | Outpatient (CLI) | payer OTHER, SELFPAY ==
--- NOTE | ~2024-09-18 | NM_ITS ---
EXAM: NM gastric emptying study DATE: 09/18/2024 13:37 INDICATION: Nausea with vomiting. TECHNIQUE: A gastric emptying study was performed using the methodology of Alfredo PEPPER, et al. J Nucl Med 2007; 48:568-572. The patient was given a meal consisting of 2 scrambled eggs labeled with 1 mCi Tc-99m sulfur colloid, 2 slices of toast, two packages of jam, and approximately 120 mL of water. Si multaneous anterior and posterior 1-min images of the abdomen were obtained with the patient supine a t multiple time points over a total period of 4 hours. The geometric mean of anterior and posterior v iews was determined, and the percentage retention was calculated for each time point. COMPARISON: None. FINDINGS: Gastric retention of the radiotracer-labeled meal was 48%, 20%, and 3% at the 1-hour, 2-ho ur, and 4-hour time points, respectively. With this technique, apparent rapid gastric emptying is sug gested by <30% gastric retention at 1 hour. Delayed gastric emptying is defined by gastric retention of >90% at 1 hour, >60% retention at 2 hours, or >10% retention at 4 hours. IMPRESSION: 1. Normal gastric emptying. Reviewed, dictated and finalized at location A. IMPRESSION: 1. Normal gastric emptying.
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
--- OUTSIDE RECORDS SUMMARY | 2024-09-18 09:00 | XMS_ITS | Data Portability ---
Author Organization [facility] Address [address] [place] [address] Care Team Providers Care Lard Bleacher Name Role Phone R[place] ELLE Primary Care Provider JORGE FRIEDMAN Primary Care Provider [phone] Assessment Encounter Date Assessment Date Assessment LastModified by Organization Details LastModified Time 12/27/2020 12/27/2020 Annual gynecological exam performed. Patient will come back in a year unless there are new symptoms. Not available 12/26/2020 17:12:16 Plan of Treatment Reminders Order Date Submit Date Provider Last Modified By Organization Details Last Modified Time Details Appointments None record ed. Lab None record ed. Referral None record ed. Procedures None record ed. Surgeries None record ed. Imaging None record ed. Medication Orders None record ed. Patient TargetsNo targets recorded. Patient InstructionsNo instructions recorded. Reason for Referral None Reported. Results Created Date Observation Date Name Description Value Unit Range Abnormal Flag Note LastModifiedBy Organization Detail LastModifiedTime 12/28/19 21 12/27/2020 IMAGE GUIDE D PAP AND HPV REGAR DLESS image guided Pap, HPV regardless of Pap result SEE RESULT S BELOW CASE REPOR T: Cytol ogy Gynec ologi matthieu Repor t Case: [id number] Autho chandan li Provi marianela: Mustapha Ruth Colle cted: 12/27 1310 PROCESS SERVER Order ing Locat ion: [place] [facility] Recei florentin: 12/28 0058 First Scree n: Jose Maria Ramirez , CT Speci men: Scree kacie Pap - Image d, Cervi x STATE MENT OF ADEQU ACY: Satis facto ry for evalu ation Trans forma tion zone compo nent prese nt FINAL DIAGN OSIS: Negat jossue for Intra epith elial Lesio florecita or Sirena copeland Elect sondra metz [place] d by Jose Maria Ramirez , SUNITA on 2020 at 12:29 PM ----- ----- ----- ----- ----- ----- ----- ----- ----- ----- ----- ----- ----- ----- ----- ----- ----- ---- HPV RESUL TS: HPV mRNA E6/E7 : No HPV mRNA Detec kerrie NOTE: This high risk HPV mRNA assay detec ts fourt een high- risk HPV types (16, 18, 31, 33, 35, 39, 45, 51, 52, 56, 58, 59, 66, 68) witho ut diffe renti ation . CHART ABLE COMME NT: Note: This speci men was revie wed by a Cytot echno logis t and/o r Patho logis t (as indic ated in this repor t) after evalu ation using the Thinp rep Imagi ng Syste m. CLINI MATTHIEU INFOR MATIO N: Menst rual Statu s: LMP (if appli cable ): Clini matthieu Histo ry/Pr eviou s Pap: Type of Neopl fernanda (if appli cable ): Other Histo ry: Hormo denis (if appli cable ): PAP EDUCA MADALYN L NOTE: The Pap Test is a scree kacie test with an inher ent false negat jossue rate. Liqui d-bas e sampl ing may decre ase, but will not elimi pavel, false negat jossue resul ts. A negat jossue resul t does not precl ude the prese nce and/o r devel opmen t of disea se, since the prese nce of abnor mal cells in the sampl e depen ds on the locat ion of the lesio n and sampl ing techn ique. Aki nued regul ar scree kacie is the best metho d of cance r preve ntion . If repor kerrie cytol ogic findi ng do not corre late with physi matthieu and/o r histo rical findi ngs, furth er inves tigat ion is recom ashley d, as clini benny bashir nted. Not Available [facility] (Lab) [address], [place], [address], 12/30/2020 13:32:20 12/28/19 21 12/27/2020 MAMMO , scree kacie, bilat eral No observ ation record ed. [email or web address] [facility] [address], [place], [address], 12/31/2020 10:12:41 11/20/19 22 11/18/2021 XR, abdom en No observ ation record ed. [email or web address] [facility] [address], [place], [address], 11/19/2021 20:31:40 Result Notes None recorded. Problems Name Problem SNOMED Code Status Onset Date Resolution Date Notes Provider Name and Address Organization Details Recorded Time Evaluati on finding Completed 201812/26/2020 Hematuri a, unspecif ied;Prac sandi [facility]14:14 Imaging of abdomen abnormal [id number] Completed 201812/26/2020 Abn findings on dx imaging of abd regions, inc retroper iton;Pra ctice ID: [address] [facility] 17:14:23 Disorder of uterus 84533712 Completed 201812/26/2020 Noninfla mmatory disorder of uterus, unspecif ied;Prac sandi ID: 0001 [facility] 17:14:09 Acute vaginiti s [id number] Completed 201812/26/2020 Acute vaginiti s;Practi ce ID: 0001 Amita yoo [facility] 17:13:59 Carbuncl e [id number] Completed 201512/26/2020 Carbuncl e, unspecif ied;Prac sandi ID: 0001 [facility] 17:14:02 Blood leukocyt e number above referenc e range [id number] Completed 201512/26/2020 Elevated white blood cell count, unspecif ied;Prac sandi ID: 0001 [facility] 17:14:[address] Concept Completed 201612/26/2020 Encntr for general adult medical exam w/o abnormal findings ;Practic e ID: [address] [facility] 17:14:[address] Concept Completed 201612/26/2020 Encntr for shank tapper exam (general ) (routine ) w/o abn findings ;Practic e ID: 0001 [facility] 17:14:50 Screenin g for malignan t neoplasm of rectum Completed 201612/26/2020 Encounte r for screenin g for malignan t neoplasm of rectum;P [facility] ID: [facility] 17:14:46 Dysuria 72792435 Completed 201712/26/2020 Dysuria; Practice ID: 0001 Amita yoo [facility] 17:14:12 Abnormal uterine bleeding [id number] 100 Completed 201712/26/2020 Other specifie d abnormal uterine and vaginal bleeding ;Practic e ID: 0001 Amita yoo [facility] 17:13:53 Premenst rual dysphori c disorder 734404 Completed 201712/26/2020 Premenst rual dysphori c disorder ;Practic e ID: [address] [facility] 17:14:39 Finding of menstrua l bleeding Completed 201712/26/2020 Excessiv e and frequent menstrua tion with regular cycle;Pr actice ID: [address] [facility] 17:14:19 Insertio n of intraute rine contrace ptive device Completed 201712/26/2020 Encounte r for insertio n of intraute rine contrace ptive device;P ractice ID: [address] [facility] 17:14:26 Contrace ptive sheath status [id number] Completed 201812/26/2020 Encounte r for routine checking of intraute rine contrace p dev;Prac sandi ID: [address] [facility] 17:14:04 Female genital organ symptoms Completed 201412/26/2020 Pelvic pain;Rec orded Elsewher e: No Locat ion: [facility] S ource: EHR Varnishing Machine Operator jenifer: N Practi ce ID: 0001 Kevin lable Time: 03:45:[address] [facility] 17:14:18 Speciali zed medical examinat ion Completed 201112/26/2020 Routine gynecolo gical examinat ion;Prac sandi ID: [address] [facility] 17:14:53 Screenin g for malignan t neoplasm of cervix Completed 201112/26/2020 Pap Smear;Pr actice ID: [address] [facility] 17:14:44 Removal of intraute rine device Completed 201212/26/2020 REMOVAL OF IUD;Prac sandi ID: [address] [facility] 17:14:41 Pregnanc y test negative [id number] Completed 201212/26/2020 Negative Pregnanc y Test;Pra ctice ID: [address] [facility] 17:14:38 Family planning surveill ance Completed 201212/26/2020 Contrace ptive surveill ance, unspecif ied;Prac sandi ID: [address] [facility] 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 17:14:32 Dysmenor homero [id number] Completed 201212/26/2020 Dysmenor homero;Pra ctice ID: [address] [facility] 17:14:11 Cyst of ovary 80631048 Completed 201212/26/2020 OVARIAN CYST;Pra ctice ID: [address] [facility] 17:14:06 Finding of trunk structur e [id number] Completed 201212/26/2020 Abdomina l or pelvic swelling , mass, or lump, generali zed;Prac sandi ID: [address] [facility] 17:14:21 Left lower quadrant pain 657940102 Completed 201212/26/2020 Abdomina l pain, left lower quadrant ;Practic e ID: [address] [facility] 17:14:28 Menstrua tion finding Completed 201212/26/2020 Menorrha veronika Excessiv e Menstrua tion;Pra ctice ID: 0001 [facility] 17:14:30 Postoper ative follow-u p visit Completed 201212/26/2020 Follow Up Surgery; [facility] 17:14:36 Adult health examinat ion Completed 201412/26/2020 Routine general medical examinat ion at a health care facility ;Practic e ID: [address] [facility] 17:14:00 Right lower quadrant pain [id number] Completed 201412/26/2020 Abdomina l pain, right lower quadrant ;Practic e ID: [address] [facility] 17:14:42 Disorder of intraute rine contrace ptive device Completed 201712/26/2020 [facility] compl of intraute rine contrace ptive device, init encntr;R ecorded Elsewher e: No Locat ion: [facility] S ource: EHR Varnishing Machine Operator jenifer: N Practi ce ID: 0001 Kevin lable Time: 01:00:[address] [facility] 17:14:07 Pelvic and perineal pain [id number] Completed 201712/26/2020 Pelvic and perineal pain;Rec orded Elsewher e: No Locat ion: [facility] S ource: EHR Varnishing Machine Operator jenifer: N Practi ce ID: 0001 Kevin lable Time: 10:00:00 AM [address] Harris [facility] 17:14:34 Surveill ance of contrace ption Completed 201812/26/2020 Encounte r for surveill ance of contrace ptives, unspecif ied;Dusty rded Elsewher e: No Locat ion: [facility] S ource: EHR Varnishing Machine Operator jenifer: N Practi ce ID: 0001 Kevin lable Time: 09:30:[address] [facility] 17:14:55 Problem Notes None recorded. Procedures Surgical History Date Name Laterality Status Provider Name and Address Organization Details Recorded Time 2 IUD Insertion completed Stacey Walsh [facility] 11/19/2021 19:07:04 Breast Surgery completed [facility] 12/27/2020 11:01:04 Tubal Ligation completed [facility] 12/27/2020 11:01:04 Ovarian Cystectomy completed [facility] 12/27/2020 11:01:04 Dilation and Curettage completed [facility] 12/27/2020 11:01:04 Caesarean Section completed [facility] 12/27/2020 11:01:04 tonsilectomy/ad enoids completed [facility] 12/27/2020 11:01:04 Imaging Results Imaging Date Name Status LastModified by Organiz ation Details LastModified Time 12/27/2020 MAMMO, screening, bilateral completed [email or web address] [facility] [address], [place], [address], 12/31/2020 10:12:41 11/18/2021 XR, abdomen completed [email or web address] [facility] [address], [place], [address], 11/19/2021 20:31:40 Procedure Notes None recorded. Medical Equipment None Reported. Allergies Allergen ID Allergen Name Allergen Category Reaction Reaction Severity Criticality Documentation Date Start Date Code Code System Note Provider Name and Address Organization Details Recorded Time 19445 Tetanus toxoid adsorbed Not available Not available Not available Not available 12/26/2020 36450 RxNorm Amita Harris [place], [place] - [facility] 17:12:49 Medications Name Sig Start Date Stop Date Status Note LastModified by Organization Details LastModified Time Mirena 21 mcg/24 hr (up to 8 years) 52 mg intrauter ine device 2018 active Prescrib ed Elsewher e: Yes Loca tion: [facility] odify By: amgary meléndezunter DateTime : 07/08/19 19 09:30:00 AM Not Available Not Available Not Available metformin 500 mg tablet take 1 tablet by oral route 2 times every day with morning and evening meals 08/12 completed Prescrib ed Elsewher e: Yes Loca tion: [facility] odify By: lupe meléndezunter DateTime : 03/12/20 11 03:00:00 PM Not Available Not Available Not Available albuterol sulfate 2.5 mg/3 mL (0.083 %) solution for nebulizat ion INHALE 1 VIAL VIA NEBULIZE R EVERY 4 TO 6 HOURS NEEDED FOR SHORTNES S OF BREATH OR WHEEZING active Not Available Not Available No t Available azithromy frida 250 mg tablet FOLLOW PACKAGE DIRECTIO NS active Not Available Not Available No t Available fluconazo le 150 mg tablet take 1 tablet by oral route every other days 12/26 completed Prescrib ed Elsewher e: No Locat ion: [facility] odify By: [email or web address] Encounte r DateTime : 12/09/19 19 09:00:00 AM Not Available Not Available Not Available benzonata te 200 mg capsule TAKE 1 CAPSULE BY MOUTH THREE TIMES DAILY NEEDED FOR COUGH active Not Available Not Available No t Available Lotrisone 1 %-0.05 % topical cream apply by topical route 2 times every day for 2 weeks to the affected and surround ing areas of skin in the morning and evening 12/21 completed Prescrib ed Elsewher e: No Locat ion: [facility] odify By: [email or web address] Encounte r DateTime : 12/09/19 19 09:00:00 AM Not Available Not Available Not Available lisinopri l 20 mg tablet active Not Available Not Available Not Available prednison e 20 mg tablet active Not Available Not Available Not Available Lesly 60 mg tablet take 1 tablet by oral route 2 times every day 04/24 completed Prescrib ed Elsewher e: Yes Loca tion: [facility] odify By: nina meléndezunter DateTime : 03/12/20 11 03:00:00 PM Not Available Not Available Not Available Zyrtec 10 mg tablet active Not Available Not Available No t Available Benadryl 25 mg tablet active Not Available Not Available Not Available omeprazol e 40 mg capsule,d elayed release TAKE 1 CAPSULE BY MOUTH DAILY active Not Available Not Available No t Available levothyro xine 25 mcg tablet TAKE 1 TABLET BY MOUTH DAILY active Not Available Not Available No t Available Macrobid 100 mg capsule take 1 capsule by oral route every 12 hours for 10 days with food 02/06 completed Prescrib ed Elsewher e: No Locat ion: [facility] odify By: amara puckett DateTime : 01/29/20 18 02:00:00 PM Not Available Not Available Not Available amoxicill in 875 mg tablet TAKE 1 TABLET TWICE DAILY UNTIL ALL TAKEN 12/26 completed Not Available Not Available Not Available methocarb felisa 750 mg tablet TAKE 1 TABLET BY MOUTH THREE TIMES DAILY active Not Available Not Available No t Available dexametha sone 1 mg tablet TAKE 1 TABLET BY MOUTH NIGHT BEFORE BLOOD TEST AT 11PM active Not Available Not Available No t Available hydrocodo ne 7.5 mg-acetam inophen 325 mg tablet TAKE 1 TABLET BY MOUTH EVERY 4 TO 6 HOURS NEEDED FOR PAIN active Not Available Not Available No t Available Cipro 500 mg tablet take 1 tablet by oral route every 12 hours 12/26 completed Prescrib ed Elsewher e: No Locat ion: [facility] odify By: helen puckett DateTime : 10/20/19 10:46:48 AM Not Available Not Available Not Available hydrochlo rothiazid e 12.5 mg capsule take 2 capsule by oral route every day 03/12 completed Prescrib ed Elsewher e: Yes Loca tion: [facility] odify By: yunior madsen DateTime : 02/24/20 11 04:26:12 PM Not Available Not Available Not Available monteluka st 10 mg tablet TAKE 1 TABLET BY MOUTH 30 MINUTES PRIOR TO SHOTS active Not Available Not Available No t Available Nasonex 50 mcg/actua tion [place] spray 2 spray by intranas al route every day in each nostril 04/24 completed Prescrib ed Elsewher e: Yes Loca tion: [facility] odify By: nina arredondo DateTime : 03/12/20 11 03:00:00 PM Not Available Not Available Not Available ondansetr on 4 mg disintegr ating tablet DISSOLVE 1 TABLET ON THE TONGUE EVERY 6 TO 8 HOURS NEEDED FOR NAUSEA OR VOMITING active Not Available Not Available No t Available lisinopri l 2.5 mg tablet take 1 tablet by oral route every day 08/12 completed Prescrib ed Elsewher e: Yes Loca tion: [facility] odify By: helen puckett DateTime : 12/17/19 16 04:30:00 PM Not Available Not Available Not Available oxycodone 5 mg tablet TAKE 1 TABLET BY MOUTH EVERY 8 HOURS NEEDED FOR PAIN active Not Available Not Available No t Available Benadryl 25 mg capsule take 2 capsule by oral route every 4 - 6 hours as needed 08/07 completed Prescrib ed Elsewher e: Yes Loca tion: [facility] odify By: barbie puckett DateTime : 04/24/20 13 03:00:00 PM Not Available Not Available Not Available Mucinex 600 mg tablet, extended release 12/27 completed Not Available Not Available Not Available escitalop harman 10 mg tablet active Not Available Not Available Not Available Lexapro 5 mg tablet take 2 tablet by oral route every day 12/27 completed Prescrib ed Elsewher e: Yes Loca tion: [facility] odify By: yunior madsen DateTime : 11/16/19 19 08:30:00 AM Not Available Not Available Not Available ProAir HFA 90 mcg/actua tion aerosol inhaler active Not Available Not Available Not Available ProAir HFA 12/27 completed Not Available Not Available Not Available Acid Field Supervisor (famotidi ne) 20 mg tablet active Not Available Not Available Not Available Reusable Nebulizer Kit U UTD active Not Available Not Available Not Available Symbicort 160 mcg-4.5 mcg/actua tion HFA aerosol inhaler inhale 2 puff by inhalati on route 2 times every day in the morning and evening active Prescrib ed Elsewher e: Yes Loca tion: [facility] odify By: yunior madsen DateTime : 11/16/19 19 08:30:00 AM Not Available Not Available Not Available cholecalc iferol (vitamin D3) 1,250 mcg (50,000 unit) capsule TAKE 1 CAPSULE BY MOUTH ONCE WEEKLY active Not Available Not Available No t Available Xyzal 5 mg tablet active Not Available Not Available No t Available Zantac 50 mg/2 mL (25 mg/mL) injection solution infuse by intraven ous route every 8 hours over 12/26 completed Prescrib ed Elsewher e: Yes Loca tion: [facility] odify By: barbie puckett DateTime : 08/07/19 15 03:45:00 PM Not Available Not Available Not Available Vios Aerosol Delivery System U UTD active Not Available Not Available Not Available Vicodin 5 mg-300 mg tablet take 1 tablet by oral route every 4 - 6 hours as needed for pain 08/07 completed Prescrib ed Elsewher e: Yes [facility] By: barbie puckett DateTime : 04/24/20 13 03:00:00 PM Not Available Not Available Not Available Breo Ellipta 100 mcg-25 mcg/dose powder for inhalatio n 12/27 completed Not Available Not Available Not Available Breo Ellipta 200 mcg-25 mcg/dose powder for inhalatio n active Not Available Not Available Not Available Acid Field Supervisor (omeprazo le) 12/27 completed Not Available Not Available Not Available Vitals Date Recorded Body height Body mass index (BMI) Body weight Systolic blood pressure Diastolic blood pressure Provider Name and Address Organization Details Last Updated DateTime 12/27/2020 165.74 cm 41.9 kg/m2 972147.4 6 g 132 mm[Hg] 92 mm[Hg] Amita Harris [facility] 1 10:59:23 Date Recorded Systolic blood pressure Diastolic blood pressure Provider Name and Address Organization Details Last Updated DateTime 12/27/2020 130 mm[Hg] 84 mm[Hg] Radha Narvaez, [facility]- [address], [place], [address], [facility] 12/27/2020 11:17:54 Date Recorded Body height Body mass index (BMI) Body weight Systolic blood pressure Diastolic blood pressure Provider Name and Address Organization Details Last Updated DateTime 11/19/2021 165.74 cm 41.9 kg/m2 992322.4 6 g 149 mm[Hg] 85 mm[Hg] Stacey Walsh [facility] 2 18:50:24 Social History Question Answer Notes LastModified by Organizat ion Details LastModified Time Do You Have An Advance Directive? No Information n ot available 12/27/2020 What Is Your Level Of Alcohol Consumption? Occasional Information not available 12/27/2020 How Many Years Have You Consumed Alcohol? 30 Information not available 12/27/2020 Are You Blind Or Do You Have Difficulty Seeing? No Information n ot available 12/27/2020 What Is Your Level Of Caffeine Consumption? Moderate Information not available 12/27/2020 How Much Tobacco Do You Chew? None Information not available 12/27/2020 In The 14 Days Before Symptom Onset, Have You Had Close Contact With A Laboratory-confirm ed COVID-19 While That Case Was Ill? No Information n ot available 12/27/2020 In The 14 Days Before Symptom Onset, Have You Had Close Contact With A Person Who Is Under Investigation For COVID-19 While That Person Was Ill? No Information not available 12/27/2020 Have You Been To An Area Known To Be High Risk For COVID-19? No Information not available 12/27/2020 Are You Deaf Or Do You Have Serious Difficulty Hearing? No Information not available 12/27/2020 What Type Of Diet Are You Following? REGULAR Information n ot available 12/27/2020 What Is The Highest Grade Or Level Of School You Have Completed Or The Highest Degree You Have Received? 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 No Information not available 12/27/2020 Do You Use Protection During Sex? No Information not available 12/27/2020 Do You Use Your Seat Belt Or Car Seat Routinely? Yes Information not available 12/27/2020 Do You Have Smoke And Carbon Monoxide Detectors In Your Home? Yes Information not available 12/27/2020 How Much Tobacco Do You Smoke? No Information not available 12/27/2020 Do You Feel Stressed (tense, Restless, Nervous, Or Anxious, Or Unable To Sleep At Night)? [id number] Information not available 12/27/2020 Do You Use Any Illicit Or Recreational Drugs? Yes Information not available 12/27/2020 Do You Use Sunscreen Routinely? No Information not available 12/27/2020 Have You Used IV Drugs? No Information not available 12/27/2020 Sex: Unknown Functional Status Question Answer Note LastModified by Organizat ion Details LastModified Time Are you able to walk? YESWOREST Information not available 12/27/2020 What is your exercise level? Occasional Information not available 12/27/2020 Mental Status None recorded. Family History Relationship Description Onset Age of this Age Resolved Age Notes LastModified by Organization Details LastModified Time Son Anxiety disorder Not available 2020 10:59:56 Son Depressive disorder Not available 2020 10:59:56 Maternal Grandmother Diabetes mellitus Not available 2020 10:59:56 Maternal Grandmother Depressive disorder Not available 2020 10:59:56 Maternal Grandmother Hypertensive disorder Not available 2020 10:59:56 Father Asthma Not available 02/2021 10:59:56 Father Hypertensive disorder Not available 2020 10:59:56 Father Depressive disorder Not available 2020 10:59:56 Father Diabetes mellitus Not available 2020 10:59:56 Mother Anxiety disorder Not available 2020 10:59:56 Mother Depressive disorder Not available 2020 10:59:56 Mother Hypertensive disorder Not available 2020 10:59:56 Mother Asthma Not available 02/2021 10:59:56 Mother Diabetes mellitus Not available 2020 10:59:56 Brother Depressive disorder Not available 2020 10:59:56 Sister Depressive disorder Not available 2020 10:59:56 Sister Asthma Not available 02/2021 10:59:56 Paternal Grandmother Hypertensive disorder Not available 2020 10:59:56 Paternal Grandmother Diabetes mellitus Not available 2020 10:59:56 Medical History Condition Response Allergies (Food, seasonal, environmental ) Y Anxiety Disorder Y Acid Reflux (GERD) Y Urinary Tract Infection Y Thyroid Problems Y Asthma Y Gestational Diabetes Y Anemia Y Depression/ depression Y Headaches Y Hypertension Y Gynecological History Statement/Question Response On BCP's at Conception? N STIs/STDs N Was last menstrual period normal N Duration of Flow (days) 5 Current Control Method Tubal Ligat ion Age at First Child 22 Frequency of Cycle (Q days) 21 Sexually Active? N Age of first menstrual cycle 15 Date of Last Pap Smear Sexual Problems? N Desired Control Method IUD LMP Unknown N Obstetrics History GPAL:G 4 P 0 0 1 3 Type Value Multiple Births 1 Induced 1 Living 3 Total 4 Past Encounters Encounter ID Performer Location Encounter Start Date Encounter Closed Date Diagnosis/Indication Diagnosis SNOMED-CT Code Diagnosis ICD10 Code Diagnosis Note [id number] Radha Narvaez , [facility] [address] [place] [id number] 12/27/2020 10:23:58 12/27/2020 11:27:33 Gynecologic examination 59631865 Z01.419 Suggested Calcium with Vitamin D 1200-1500m g daily. Patient advised to get an annual flu shot in the fall and she could obtain at [facility] or [facility] clinic. Also to obtain TDap vaccinatio n if you have not had one in the last 10 years. Recommend yearly mammograms . Encouraged monthly self breast exams. Encourage safe sexual practices, to use condoms and limit partners if not already in a monogamous relationsh ip. Engage in daily exercise of low impact aerobic exercise 45-60 minutes 4-5 times weekly. Avoid tobacco and illicit drugs as well as using moderation with alcohol intake less than 1-2 8 oz beverages daily. This lifestyle behavior pattern will lead to less health conditions and longer life span. If BMI greater than 25 weight watchers or dietary consult advised. All questions have been answered. Patient appears to understand informatio n, but if you have any questions please call or respond to this email. Pap/hpv updatedMam mo orderedCol on-discuss ed with PCPSTD declinedMi jenae IUD placed 04/29/2018N o issues or concerns [id number] Moy Barlow MD [place] [address] [address] 11/19/2021 18:38:17 11/25/2021 03:53:39 Contraception care management [id number] Z30.9 This patient is a 50-year-ol d female who presents for contracept jossue management . She is known to have 2 IUDs within the uterus. This was seen on x-ray today. The 2 IUDs removed and a single Mirena IUD was placed. There will be no charge for this. We had a lengthy discussion regarding how this may have happened. She had no symptoms. She has no bleeding. She has a tubal ligation this is for heavy bleeding. Health Concerns Section Related Observation LastModified by Organization Detai ls LastModified Time None Recorded Concern Status LastModified by Organization Details LastModified Time None Recorded Advance Directives Directive N: Payers Encounter Date Sequence Insurance Name Policy Number Policy Mckoy Covered Member ID Mckoy Member ID Guarantor Name 12/27/2020 1 [place] [id number] Radha Ross [id number] Radha Vandana 11/19/2021 1 [place] [id number] Radha Ross [id number] Radha Ross Notes Date Note Type Note Provider Name and Address Organization Details Recorded Time 12/27/2020 text/html Annual GYNReport ed bypatient.History:n o gynecologic complaints Menstrual cycle:Normal menses (Amenorrheic with Mirena IUD) Urinary symptoms:No hematuria; No incontinence Vulva:No genital lesion Vagina:Normal vaginal discharge Breast:No breast pain; No breast lump; No nipple discharge Current Contraception:Satis fied with current contraception; Monogamous relationship; Intrauterine device (iud) (04/29/2018 placed) Sexual complaints:No sexual complaints; No pain during intercourse; Normal libido Menopausal Symptoms:No menopausal symptoms; Normal vaginal lubrication Psychological symptoms:No depression; No anxiety; No PMDD Preventive measures:Encourage self breast examination; Encourage regular exercise; Encourage no tobacco use; Encourage regular mammograms starting age 40; Followed with Q3 year pap smear and high risk HPV typing; Needs to schedule mammogram; Needs to schedule colonoscopy (Discussed PCP) [facility] [address], [place], [address], [facility] 12/27/2020 11:20:25 11/19/2021 text/html This patient is a 50-year-old female who presents for contraceptive management. She is known to have 2 IUDs within the uterus. This was seen on x-ray today. The 2 IUDs removed and a single Mirena IUD was placed. There will be no charge for this. We had a lengthy discussion regarding how this may have happened. She had no symptoms. She has no bleeding. She has a tubal ligation this is for heavy bleeding. Moy Barlow MD [address], [place], [address], [facility] 11/19/2021 19:12:49 OBGyn Episode Ob Episode Information Episode Created Date Number of Fetuses Patient Bloodtype Patient rh Status Prepregnancy Weight lbs Domestic Partner Domestic Partner Phone Father Name Prop Sawyer Status 12/28/19 21 1 CLOSED Fetus Data First Name Last Name Admitted to NICU Weight (g) Sex Living Outcome Pediatric Complications Fetus ID Race Codes Race Delivery Type M [id number] Vaginal Delivery Don Calculation Initial Don Date Initial Exam Date Initial Exam Provider Initial Ultrasound Date Last Menstrual Period Date Ultra Sound Weeks Gestation 0 Eighteen To Twenty Week Don Update Ultra Sound Date Fundal Height At Umbil Quickening Date Ultra Sound Latest Weeks Gestation Final Don Confirmed By Final Don Confirmed Date Final Don Date Ultra Sound Latest Days Gestation 0 0 Menstrual History Last Menstrual Date Menses Monthly On Bcp Conception Prior Menses Frequency Hcg Plus Date Menarche Onset Age Delivery Information Delivery Date Delivery Type Labor Anesthesia Weeks Gestation Incision Type Labor Labor Length Hrs Delivered By Post Complications Tubal Sterilization Discharge Date Comments 3 Discharge Information Feeding Method Contraceptive Method Maternal HG B and HCT Levels Ob Episode Information Episode Created Date Number of Fetuses Patient Bloodtype Patient rh Status Prepregnancy Weight lbs Domestic Partner Domestic Partner Phone Father Name Prop Sawyer Status 12/28/19 21 1 CLOSED Fetus Data First Name Last Name Admitted to NICU Weight (g) Sex Living Outcome Pediatric Complications Fetus ID Race Codes Race Delivery Type Prematur e [id number] Don Calculation Initial Don Date Initial Exam Date Initial Exam Provider Initial Ultrasound Date Last Menstrual Period Date Ultra Sound Weeks Gestation 0 Eighteen To Twenty Week Don Update Ultra Sound Date Fundal Height At Umbil Quickening Date Ultra Sound Latest Weeks Gestation Final Don Confirmed By Final Don Confirmed Date Final Don Date Ultra Sound Latest Days Gestation 0 0 Menstrual History Last Menstrual Date Menses Monthly On Bcp Conception Prior Menses Frequency Hcg Plus Date Menarche Onset Age Delivery Information Delivery Date Delivery Type Labor Anesthesia Weeks Gestation Incision Type Labor Labor Length Hrs Delivered By Post Complications Tubal Sterilization Discharge Date Comments 6 STILL Discharge Information Feeding Method Contraceptive Method Maternal HG B and HCT Levels Ob Episode Information Episode Created Date Number of Fetuses Patient Bloodtype Patient rh Status Prepregnancy Weight lbs Domestic Partner Domestic Partner Phone Father Name Prop Sawyer Status 12/28/19 21 2 CLOSED Fetus Data First Name Last Name Admitted to NICU Weight (g) Sex Living Outcome Pediatric Complications Fetus ID Race Codes Race Delivery Type M Full Term [id number] M [id number] Primary Don Calculation Initial Don Date Initial Exam Date Initial Exam Provider Initial Ultrasound Date Last Menstrual Period Date Ultra Sound Weeks Gestation 0 Eighteen To Twenty Week Don Update Ultra Sound Date Fundal Height At Umbil Quickening Date Ultra Sound Latest Weeks Gestation Final Don Confirmed By Final Don Confirmed Date Final Don Date Ultra Sound Latest Days Gestation 0 0 Menstrual History Last Menstrual Date Menses Monthly On Bcp Conception Prior Menses Frequency Hcg Plus Date Menarche Onset Age Delivery Information Delivery Date Delivery Type Labor Anesthesia Weeks Gestation Incision Type Labor Labor Length Hrs Delivered By Post Complications Tubal Sterilization Discharge Date Comments 8 Discharge Information Feeding Method Contraceptive Method Maternal HG B and HCT Levels Ob Episode Information Episode Created Date Number of Fetuses Patient Bloodtype Patient rh Status Prepregnancy Weight lbs Domestic Partner Domestic Partner Phone Father Name Prop Sawyer Status 12/28/19 21 1 CLOSED Fetus Data First Name Last Name Admitted to NICU Weight (g) Sex Living Outcome Pediatric Complications Fetus ID Race Codes Race Delivery Type , Induced [id number] Don Calculation Initial Don Date Initial Exam Date Initial Exam Provider Initial Ultrasound Date Last Menstrual Period Date Ultra Sound Weeks Gestation 0 Eighteen To Twenty Week Don Update Ultra Sound Date Fundal Height At Umbil Quickening Date Ultra Sound Latest Weeks Gestation Final Don Confirmed By Final Don Confirmed Date Final Don Date Ultra Sound Latest Days Gestation 0 0 Menstrual History Last Menstrual Date Menses Monthly On Bcp Conception Prior Menses Frequency Hcg Plus Date Menarche Onset Age Delivery Information Delivery Date Delivery Type Labor Anesthesia Weeks Gestation Incision Type Labor Labor Length Hrs Delivered By Post Complications Tubal Sterilization Discharge Date Comments 1 Discharge Information Feeding Method Contraceptive Method Maternal HG B and HCT Levels
--- OUTSIDE RECORDS SUMMARY | 2024-09-18 09:00 | XMS_ITS ---
Author Organization [facility] [employer] Address [address] [place] [address] Care Team Providers Care Power Plant Superintendent Name Role Phone Devi George MD Primary Care Provider UnavailStevie Chappell [phone] Social History Sex Assigned At : Social History Observation Description Sex Assigned At Female Encounters Encounter Location Date Provider Diagnosis [facility] [address] [place] [address] 03/30/2024 Stevie Jackson Plan Of Treatment No Information Progress Notes * HODA MONTENEGROOB:1970 (53 yo F)Acc No.[id number]:03/30/2024 Patient: ANGELA ALARCON Provider: Loreta JACKSON MD :1970 A ge:53 Y S ex:Female Date:03/30/2024 Address:[address] [place], [place] [id number] Subjective: * Chief Complaints: * * Medical History: Objective: * Vitals: Assessment: Plan: * Treatment: * Procedure Codes: N S NO SHOW * Billing Information: * Visit Code: * Procedure Codes: NS NO SHOW. * Sign off status: Completed true * Provider: Loreta JACKSON MD Date: 1 Generated for Printi ng/Faxing/eTransmitting on: 0 09/18/2024 09:00 AM CDT
--- OUTSIDE RECORDS SUMMARY | 2024-09-18 09:00 | XMS_ITS | Patient Health Record ---
Author Organization [facility] [employer] Address [address] [place] [address] Care Team Providers Care Machine Rough Rounder Name Role Phone Devi George MD Primary Care Provider Unavailab Stevie Maldonado Unavailable [phone] Migration, Provider Unavailable Unavailable Allergies No Known Allergies Reason For Referral No Information Medications Medication SIG (Take, Route, Frequency, Duration) Notes Start Date End Date Status Escitalopram Oxalate 20 mg TAKE 1 TABLET oral daily for 90 days Active Methocarbamol 750 MG Oral 07/07/2023 Active Levothyroxine Sodium 25 MCG Oral for 30 Days Active metFORMIN HCl ER 500 MG Oral 07/07/2023 Active Montelukast Sodium 10 MG Oral for 30 Days Active Lisinopril 20 MG Oral for 90 Days Active Omeprazole 40 MG TAKE 1 CAPSULE BY [facility] DAILY 30 MINUTES BEFORE BREAKFAST Oral for 30 Days Active Trelegy Ellipta 200-62.5-25 MCG/ACT INHALE 1 PUFF BY MOUTH DAILY Inhalation for 30 Days Active ProAir HFA 108 (90 Base) MCG/ACT Inhalation 07/07/2023 Active Cholecalciferol 1.25 MG (05025 UT) Oral 07/07/2023 Active Immunizations Vaccine Route Administration Date Status Comme nts Influenza, injectable, MDCK, preservative free Unknown 06/21/2020 Administered Pfizer Biontech Covid-19 Vac cine 2nd dose Unknown 09/19/2020 Administered Pfizer Biontech Covid-19 Vac cine 2nd dose Unknown 10/17/2020 Administered Tdap Unknown 08/22/2018 Administered Social History Tobacco Use: Social History Observation [...] past year? Monthly or less (1 point) Vital Signs Heart Rate 66 /min 12/28/2023 Height-cm 177.29 cm 12/28/2023 Blood pressure diastolic 90 mm Hg 12/28/2023 Weight-kg 109.32 kg 12/28/2023 Height 69.80 in 12/28/2023 Blood pressure systolic 122 mm Hg 12/28/2023 Weight 241 lbs 12/28/2023 BMI 34.77 kg/m2 12/28/2023 Encounters Encounter Location [facility] [address] [address] 12/28/2023 Thena Toby Major depressive disorder, single episode, in full remission F32.5 and Generalized anxiety disorder F41.[address] [address] 12/07/2023 Thena Toby [address] [address] 03/27/2024 Thena Toby [address] [address] 03/30/2024 Thena Toby [address] [address] 05/05/2024 Thena Toby Major depressive disorder, single episode, in full remission F32.5 and Generalized anxiety disorder F41.[address] [address] 09/29/2023 Provider Migration [address] [address] 09/30/2023 Provider Migration [facility], [address] [address] 10/08/2023 Provider Migration [facility], [facility] [address] [facility] [address] [facility] [address] [place] [address] 10/13/2023 Provider Migration [facility], [facility] [address] [facility] [address] [facility] [address] [place] [address] 11/05/2023 Provider Migration [facility], [facility] [address] [facility] [address] [address] 11/06/2023 Provider Migration [facility], [facility] [address] [facility] [address] [facility] [address] [place] [address] 11/07/2023 Provider Migration [facility] [address] [facility] [address] [address] 11/08/2023 Provider Migration Assessments Encounter Date Diagnosis (ICD Code) Assessment Notes Treatment Notes Treatment Clinical Notes Section Notes 12/28/2023 Major depressive disorder, single episode, in full remission (ICD-10 - F32.5) 12/28/2023 Generalized anxiety disorder (ICD-10 - F41.1) 05/05/2024 Major depressive disorder, single episode, in full remission (ICD-10 - F32.5) 05/05/2024 Generalized anxiety disorder (ICD-10 - F41.1) Plan Of Treatment No Information Insurance Providers Payer Name Payer Address Payer Phone Subscriber Number Group Number Insured Name Patient Relationship to Insured Coverage Start Date Coverage End Date Bobbi [address] [place] [address] [id number] ANGELA MONTENEGRO Self - patient is the insured Medical (General) History Medical History History ICD Code Problems: Body mass index 30+ - obesity Generalized anxiety disorder Idiopathic acute pancreatitis Major depression in remission Severe recurrent major depression withou t psychotic features , Past Psychiatric History: Anxiety Disord er,Major Depressive Episode Surgical History Surgery Date(Month/Year) Removal of gallbladder (00685) Tonsilectomy/adenoids Cosmetic surgery 03/21/2012
--- OUTSIDE RECORDS SUMMARY | 2024-09-18 09:00 | XMS_ITS | Clinical Summary ---
Author Organization [facility] Address [address] [place] [address] Care Team Providers Care Egg Tester Name Role Phone Corie Shahid MD Primary Care Provider [phone] Social History Tobacco Use Types Packs/Day Years Used Date Smoking Tobacco: Never Assessed Comments Unknown Sex and Gender Information Value Date Recorded Sex Assigned at Not on file Legal Sex Female 10:10 AM POT ANNEALER Gender Identity Not on file Sexual Orientation Not on file Plan of Treatment Upcoming Encounters Date Type Department Care Team (Late st Contact Info) Description 09/19/2024 1:20 PM CDT Office Visit [facility] [place] [address] [address] [place], [place] [id number] Corie Shahid MD [address] [place] [address] Health Maintenance Due Date Last Done Comments [...] 2022 COVID-19 Vaccine (2023-2 5 season) 2024 Meningococcal B Vaccine Aged Out No [...] patient's age to complete this topic Insurance [facility] Care Teams Egg Tester Relationship Specialty Start Date End Date Corie Shahid MD [address] [facility] [address] [place] [address] PCP - General INTERNAL MEDICINE 07/06/24
--- OUTSIDE RECORDS SUMMARY | 2024-09-18 09:00 | XMS_ITS ---
Author Organization [facility] Address [address] [place] [address] Care Team Providers Care Junior Java Developer Name Role Phone Devi George Primary Care Provider UnavailDemetrice Martin Unavailable [phone] REASON FOR VISIT 90Day Rx Medications Medication SIG (Take, Route, Frequency, Duration) Notes Start Date End Date Status Trelegy Ellipta 200-62.5-25 MCG/ACT 1 puff Inhalation Once a day for 90 days 09/07/2024 Active Albuterol Sulfate HFA 108 (90 Base) MCG/ACT 2 puffs as needed Inhalation every 4 hrs for 90 days 08/23/2024 Active Montelukast Sodium 10 MG 1 tablet Orally Once a day for 90 days 09/07/2024 Active Encounters Encounter Location Date Provider Diagnosis [facility] [address] [place] [address] 09/07/2024 Demetrice Meyers Severe persistent asthma, uncomplicated J45.50 Assessments Encounter Date Diagnosis (ICD Code) Assessment Notes Treatment Notes Treatment Clinical Notes Section Notes 09/07/2024 Severe persistent asthma, uncomplicated (ICD-10 - J45.50) Plan Of Treatment Medication Medication Name Sig Start Date Stop Date Notes Trelegy Ellipta 200-62.5-25 MCG/ACT 1 puff Inhalation Once a day for 90 days 09/07/2024 Albuterol Sulfate HFA 108 (9 0 Base) MCG/ACT 2 puffs as needed Inhalation every 4 hrs for 90 days 08/23/2024 Montelukast Sodium 10 MG 1 tablet Orally Once a day for 90 days 09/07/2024 Next Appt Details Provider Name:Demetrice bills, 09/20/2024 10:00:00 AM, [address] [facility], [address], [place], [address], Progress Notes * Brandy MONTENEGRO ADOB:[birth year] (53 yo F)Acc No.[id number]:09/07/2024 Patient: Brandy ALARCON :1970 A ge:53 Y S ex:Female Address:[address] [place] [address], [address] * Refills Refill Albuterol Sulfate HFA Aerosol Solution, 108 (90 Base) MCG/ACT, Inhalation, 3, 2 puffs as needed, every 4 hrs, 90 days, Refills=0 Start Montelukast Sodium Tablet, 10 MG, Orally, 90, 1 tablet, Once a day, 90 days, Refills=1 Refill Trelegy Ellipta Aerosol Powder Breath Activated, 200-62.5-25 MCG/ACT, Inhalation, 3, 1 puff, Once a day, 90 days, Refills=2 * true * Date: Generated for Luis andrew/Agustina/Yolieitting on: 0 09/18/2024 08:59 AM CDT
--- OUTSIDE RECORDS SUMMARY | 2024-09-18 09:00 | XMS_ITS ---
Author Organization [facility] Address [address] [place] [id number] Care Team Providers Care Gas Leak Tester Name Role Phone Devi George Primary Care Provider Unavailnahid e Demetrice Meyers Unavailable [phone] Allergies No Known Allergies Results Component Value Reference Range Notes Spirometry Reviewed date: Interpretation:Normal Performing Lab: Notes/Report: Normal SpiroPreBronchodilator_FVC 3.35 SpiroPostBronchodilator_FEF25_75 0 SpiroPreBronchodilator_FEF25_75 3.59 SpiroPreBronchodilator_FEV1 2.81 SpiroPrecentPredictionPost_FEF25_75 0 SpiroPrecentPredictionPost_FEV1 0 SpiroPrecentPredictionPost_FEV1_OVER_FVC 0 SpiroPrecentPredictionPost_FVC 0 SpiroPrecentPredictionPre_FEF25_75 122.9 SpiroPrecentPredictionPre_FEV1 98.6 SpiroPrecentPredictionPre_FEV1_OVER_FVC 105.1 SpiroPrecentPredictionPre_FVC 94.6 SpiroPredicted_FEF25_75 2.92 SpiroPreBronchodilator_FEV1_OVER_FVC 83.93 SpiroPreBronchodilator_PEF 6.9 SpiroPostBronchodilator_FVC 0 SpiroPostBronchodilator_FEV1 0 SpiroPostBronchodilator_FEV1_OVER_FVC 0 SpiroPostBronchodilator_PEF 0 SpiroPredicted_FVC 3.54 SpiroPredicted_FEV1 2.85 SpiroPredicted_FEV1_OVER_FVC 79.86 SpiroPredicted_PEF 6.2 REASON FOR VISIT Asthma follow-up - some flares with Winter weather, waiting on Fasenra approval, continues Trelegy and Singulair Medications Medication SIG (Take, Route, Frequency, Duration) Notes Start Date End Date Status Omeprazole *Please review and pick correct strength-formulat ion from AudioCatch options. If intended option is not shown, discontinue and re-order from Quick Search* Active TRELEGY ELLIPTA 200 mcg-62.5 mcg-25 mcg/inh 1 puff(s) inhaled once a day for 30 days Active Lexapro 10 MG 1.5 tab(s) orally once a day Active Lisinopril 20 MG 1 tab(s) orally once a day for 30 day(s) Active Albuterol Sulfate HFA 108 (90 Base) MCG/ACT 2 puffs as needed Inhalation every 4 hrs for 30 days 08/23/2024 Active SIT (TRADITIONAL) variable per schedule SC per schedule Active Levothyroxine Sodium 25 MCG 1 tab(s) orally once a day for 30 day(s) Active SINGULAIR 10 mg 1 tab(s) orally once a day for 90 days Active metFORMIN HCl *Please review and pick correct strength-formulat ion from AudioCatch options. If intended option is not shown, discontinue and re-order from Quick Search* Active Albuterol Sulfate HFA 108 (90 Base) MCG/ACT 1 puff as needed Inhalation every 4 hrs Active FAMOTIDINE 40 mg 1 tab(s) orally once a day (at bedtime) Active CETIRIZINE HYDROCHLORIDE 10 mg 1 tab(s) orally once a day Active AUVI -Q 0.3 mg as directed intramuscularly once for 30 day(s) Active Auvi-Q 0.3 MG/0.3ML as directed Injection Active Social History Tobacco Use: Social History Observation Description Date Details (start date - stop date) Never Smoker NA - NA Smoking Smart Form: Question Answer Notes Are you a: never smoker Tobacco Control (Standard) Question Answer Notes Tobacco use: Nonsmoker Vital Signs Blood pressure systolic 129 mm Hg 08/24/19 25 Blood pressure diastolic 82 mm Hg 025 Height 66 in 08/23/2024 Weight 235.6 lbs 08/23/2024 BMI 38.02 kg/m2 08/23/2024 Oximetry 100 % 08/23/2024 Encounters Encounter Location Date Provider Diagnosis [facility] [address] [facility] [address] [place] [address] 08/23/2024 Demetrice Meyers Severe persistent asthma, uncomplicated J45.50 ; 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 Spirometry today is normal. Planning to start Fasenra when shipment arrives. For now, continue Trelegy, Singulair and prn albuterol. She required steroids , and to treat asthma exacerbations. AEC 292. IgE 50. The patient has severe asthma with an eosinophilic phenotype. The patient has had inadequate control of asthma symptoms after a minimum of 3 months of compliant use of inhaled corticosteriods and long-acting beta2-agonist or inhaled corticosteroids and long-acting anti-muscarinic antagonist. 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 Accordingly, we have introduced a new, aggressive medication regimen, discussed nasal washes and allergy-specific avoidance measures. Immunotherapy dosing adjusted due to systemic reaction requiring epinephrine. Now tolerating immunotherapy well. 08/23/2024 Allergy to other foods (ICD-10 - Z91.018) Brandy's oropharyngeal symptoms from certain fresh fruits and nuts is consistent with oral allergy syndrome (OAS), a mild form of IgE-mediated allergy due to cross-reactivity between pollens and unstable food proteins on fresh produce and nuts. 08/23/2024 Allergic rhinitis due to animal (cat) (dog) hair and dander (ICD-10 - J30.81) 08/23/2024 Other allergic rhinitis (ICD-10 - J30.89) Follow allergen avoidance, meds and continue SCIT as an adjunctive treatment to current regimen 08/23/2024 Other chronic allergic conjunctivitis (ICD-10 - H10.45) Given ocular signs and symptoms I encouraged allergy avoidance measures and meds as above. If symptoms persist, consider adding additional medications including intraocular antihistamine/mast cell stabilizer, PRN 08/23/2024 Allergic contact dermatitis due to adhesives (ICD-10 - L23.1) recommend continued avoidance of problematic bandages. No problems with exposure to latex 08/23/2024 Other Plan Of Treatment Medication Medication Name Sig Start Date Stop Date Notes TRELEGY ELLIPTA 200 mcg-62.5 mcg-25 mcg/inh 1 puff(s) inhaled once a day for 30 days Albuterol Sulfate HFA 108 (90 Base) MCG/ACT 2 puffs as needed Inhalation every 4 hrs for 30 days 08/23/2024 SIT (TRADITIONAL) variable per schedule SC per schedule SINGULAIR 10 mg 1 tab(s) orally once a day for 90 days FAMOTIDINE 40 mg 1 tab(s) orally once a day (at bedtime) CETIRIZINE HYDROCHLORIDE 10 mg 1 tab(s) orally once a day AUVI -Q 0.3 mg as directed intramus cularly once for 30 day(s) Treatment Notes Assessment Notes Severe persistent asthma, uncomplicated Brandy has persistent asthma and ACT 19. Spirometry today is normal. Planning to start Fasenra when shipment arrives. For now, continue Trelegy, Singulair and prn albuterol. She required steroids , and to treat asthma exacerbations. AEC 292. IgE 50. The patient has severe asthma with an eosinophilic phenotype. The patient has had inadequate control of asthma symptoms after a minimum of 3 months of compliant use of inhaled corticosteriods and long-acting beta2-agonist or inhaled corticosteroids and long-acting anti-muscarinic antagonist. The patient has had an eosinophil count in the past 90 days or 12 months as documented in this medical record Allergic rhinitis due to pollen Brandy clearly suffers from atopic disease based upon history and skin testing. Accordingly, we have introduced a new, aggressive medication regimen, discussed nasal washes and allergy-specific avoidance measures. Immunotherapy dosing adjusted due to systemic reaction requiring epinephrine. Now tolerating immunotherapy well. Allergy to other foods Brandy's orophar yngeal symptoms from certain fresh fruits and nuts is consistent with oral allergy syndrome (OAS), a mild form of IgE-mediated allergy due to cross-reactivity between pollens and unstable food proteins on fresh produce and nuts. Other allergic rhinitis Follow allergen avoidance, meds and continue SCIT as an adjunctive treatment to current regimen Other chronic allergic conjunctivitis Gi radhika ocular signs and symptoms I encouraged allergy avoidance measures and meds as above. If symptoms persist, consider adding additional medications including intraocular antihistamine/mast cell stabilizer, PRN Allergic contact dermatitis due to adhesives recommend continued avoidance of problematic bandages. No problems with exposure to latex Next Appt Details Follow Up: 1 Week, Reason: constantin Leija Provider Name:Demetrice bills, 09/20/2024 10:00:00 AM, [address] [facility], [address] [place] [address], [phone], Procedure Notes * Category Sub-Category Detail Notes SCIT Traditional Aeroallergen Schedul e Administration:: Full dosing administered per SOP and AAIC's titration schedule and/or specific instructions as outlined on the patient's shot record; see attached for specifics re: content, concentration, volume and location of injection(s). Progress Notes * Brandy MONTENEGRO ADOB:[birth year] (53 yo F)Acc No.[id number]:08/23/2024 Asthma F/U Patient: Brandy ALARCON Provider: Eryn Meyers MD :1970 A ge:53 Y S ex:Female Date:08/23/2024 Address:[address] [place], [place] [id number] Pcp:Devi George Subjective: * Chief Complaints: * A sthma follow-up - some flares with Winter weather, waiting on Liss approval, continues Trelegy and Singulair * HPI: * Introduction: I had the pleasure of seeing Janis Montenegro, a 53 year old with asthma, ARC, history of pancreatitis and OAS presenting for f/u evaluation of asthma. She was last evaluated 05-17-2024. ACT 19. She has required albuterol a few times in the last week with winter weather. She continues Trelegy and Singulair. She is planning to start Fasenra and needs to call [employer] for drug shipment. She was treated with prednisone June 2024 for sinusitis by urgent care.? She reports recent abdominal pain and concern that pancreatitis is flaring. She has started a bland diet and spoken to her PCP. She was treated with prednisone January 2024 for asthma exacerbation. She also required steroids April 2023 and April 22 for asthma exacerbations. ? She reports improvement in congestion and rhinorhea since starting immunotherapy. Also improvement in asthma control since starting immunotherapy. S he is taking Singulair, Zyrtec and Famotidine prior to SCIT. Systemic reaction required epinephrine. She has oral allergy syndrome and is currently avoiding unprocessed honey, bananas, celery, apples, and pears. Today, she reports no fevers, chills, night sweats or other constitutional symptoms,. * ROS: A LLERGY: Positive p er the HPI and history, otherwise unremarkable.? S PECIAL SENSES: Positve for n one. C ONSTITUTIONAL: Positive for n one. E NT: Positive p er the HPI and history, otherwise unremarkable.? R ESPIRATORY: Positive p er the HPI and history, otherwise unremakable.? O PHTHALMOLOGY: Positive for p er the HPI and history, otherwise unremarkable. E NDOCRINOLOGY: Positive for n one. C ARDIOLOGY: Positive for n one. G ASTROENTEROLOGY: Positive for n one. U ROLOGY: Positive for n one. N EUROLOGY: Positive for n one. H EMATOLOGY/LYMPH: Positive for n one. M USCULOSKELETAL: Positive for n one. P SYCHOLOGY: Positive for n one. * Medical History: * Surgical History: T onsillectomy 11/19/1977D&C 02/17/1996C-section 07/30/1997Cholecystectomy 01/20/2000Plastic surgery 03/23/2012Ovarian cysts removal 02/19/2013Mass removed from round ligament by uterus, cyst removed 03/21/2015Left ovary removal 11/01/2015Thyroidectomy for non cancerous nodules and cyst 2021 * Hospitalization/Major Diagno stic Procedure: P ancreatitis 02/21/2019 * Family History: F ather: alive, diagnosed with Diabetes mellitus type I, Hypertension, Atopic asthma w/o mention of status asthmaticus or acute exacerbation. M other: alive, diagnosed with Diabetes mellitus type I, Hypertension, Atopic asthma w/o mention of status asthmaticus or acute exacerbation. S iblings: Yes, diagnosed with Allergic rhinitis due to allergen, Atopic asthma w/o mention of status asthmaticus or acute exacerbation. 1 brother(s) , 1 sister(s) . 3 son(s) . . * Social History: M arital Status What is your marital status? m arried A lcohol Screening Do you ever drink alcoholic beverages? Y es Number of drinks per occasion: 2 Frequency? E very 6 months S moking Have you ever smoked tobacco: n ever smoked Additional Findings: Tobacco Non-User A ggressive non-smoker Are you a : n ever smoker S moking Smart Form Are you a: n ever smoker R ecreational drug use Have you ever used recreational drugs? N o D etails on consumption of certain products? Do you regularly consume products with aspartame; Equal or NutraSweet? N o Do you regularly consume products with artificial coloring??No Have you ever noticed worsening of your rash with these food items? N o A re any of the following personal care products containing fragrance, dye or preservatives used regularly? Shampoo: Y es Conditioner: Y es Soap: Y es Laundry Detergent: N o Fabric Softener: Y es Deodorant: Y es Perfume, cologne, after shave: N o Air freshners or other scented products: Y es Hair coloring dyes or rinses: Y es Other: Y es O ccupation Are you currenly employed? N o Have you had any job with high exposure to fumes, chemicals, dust or other noxious substances? N o Are you currently a student? N o E nvironmental History Living environment: p rivate home Where is the home located? n ear any major factories or industries,suburb Age of home: 1 06 How long have you lived there? 5 years or more How many people live in the home? 2 H ome description Basement: Y es Any water damage in basement? N o Smokers in the home? N o Smokers outside the home? N o Air Conditioning? Y es Central Air? Y es Forced air heating? Y es Gas or electric? g as Fireplace? N o Wood burning stove? N o Do you vacuum the home? Y es Air purification systems? N o Pillow and mattress dust-proof encasings? N o Do you use a humidifier? N o Do you own any pets? Y es What kind(s)? (click all that apply) c ats,dog Where do your pets sleep? o ther room in home Fabric softeners used? Y es Plants in the home? Y es How many? 4 Where are they kept? k itchen Is there carpeting in your bedroom? N o Do you have [id number] carpeting? N o What is the age of your mattress (years)? 1 0 What material(s) are used to manufacture your bedding and pillow? s ynthetic,natural fiber (e.g. cotton) What is the age of your pillow (years)? 1 0 What material are your bedding items made of? s ynthetic,natural fiber (e.g. cotton) Do you sleep with quilts or blankets or a duvet? Y es What material? s ynthetic,natural fiber (e.g. cotton) How many cats? 1 How many dogs? 1 T obacco Control (Standard) Tobacco use: N onsmoker * Medications: T akingCETIRIZINE HYDROCHLORIDE 10 mg tablet 1 tab(s) orally once a day FAMOTIDINE 40 mg tablet 1 tab(s) orally once a day (at bedtime) SINGULAIR 10 mg tablet 1 tab(s) orally once a day TRELEGY ELLIPTA 200 mcg-62.5 mcg-25 mcg/inh powder 1 puff(s) inhaled once a day Auvi-Q 0.3 MG/0.3ML Solution Auto-injector as directed Injection Albuterol Sulfate HFA 108 (90 Base) MCG/ACT Aerosol Solution 1 puff as needed Inhalation every 4 hrs metFORMIN HCl , Notes to Pharmacist: *Please review and pick correct strength-formulation from Medispan options. If intended option is not shown, discontinue and re-order from Quick Search*Levothyroxine Sodium 25 MCG Tablet 1 tab(s) orally once a day Omeprazole , Notes to Pharmacist: *Please review and pick correct strength-formulation from Luxury Retreatsspan options. If intended option is not shown, discontinue and re-order from Quick Search*Lisinopril 20 MG Tablet 1 tab(s) orally once a day Lexapro 10 MG Tablet 1.5 tab(s) orally once a day SIT (TRADITIONAL) variable see record per schedule SC per schedule Taking CETIRIZINE HYDROCHLORIDE 10 mg tablet 1 tab(s) orally once a day Taking FAMOTIDINE 40 mg tablet 1 tab(s) orally once a day (at bedtime) Taking SINGULAIR 10 mg tablet 1 tab(s) orally once a day Taking TRELEGY ELLIPTA 200 mcg-62.5 mcg-25 mcg/inh powder 1 puff(s) inhaled once a day Taking Auvi-Q 0.3 MG/0.3ML Solution Auto-injector as directed Injection Taking Albuterol Sulfate HFA 108 (90 Base) MCG/ACT Aerosol Solution 1 puff as needed Inhalation every 4 hrs Taking metFORMIN HCl , Notes to Pharmacist: *Please review and pick correct strength-formulation from LivelyFeedan options. If intended option is not shown, discontinue and re-order from Quick Search*Taking Levothyroxine Sodium 25 MCG Tablet 1 tab(s) orally once a day Taking Omeprazole , Notes to Pharmacist: *Please review and pick correct strength-formulation from LivelyFeedan options. If intended option is not shown, discontinue and re-order from Quick Search*Taking Lisinopril 20 MG Tablet 1 tab(s) orally once a day Taking Lexapro 10 MG Tablet 1.5 tab(s) orally once a day Taking SIT (TRADITIONAL) variable see record per schedule SC per schedule Not-Taking/PRNAUVI -Q 0.3 mg kit as directed intramuscularly once Medication List reviewed and reconciled with the patientNot-Taking/PRN AUVI -Q 0.3 mg kit as directed intramuscularly once Medication List reviewed and reconciled with the patient * Allergies: N .K.D.A.no[Allergies Verified] Objective: * Vitals: B P:129/82mm Hg, HR:71/min, Pulse Oximetry:100%, ACT:19, Ht: 66 in, Wt: 235.6 lbs, BMI:38.02Index. * Examination: G eneral examination: General appearance: n one. HEENT: c onjunctiva are clear bilaterally, no tenderness to palpation of the sinuses, TM's without evidence of acute infection, turbinates 2+ swollen and pale inferiorly bilaterally, clear rhinorrhea is present, no polyps noted, no septal perforation, posterior oropharynx is clear, no exudates, no tongue swelling, and uvula is midline. Oral cavity: n ormal, no lesions. Neck, thyroid : s upple, non-tender, no anterior cervical lymphadenopathy. Breasts : n ot performed. Heart: R RR, S1-S2, no murmurs, no rubs, no gallops. Lungs: c lear to auscultation and percussion in all lung lopes, no wheezes or crackles. Neurologic exam: u nremarkable. Skin: n ormal, no rash, dermatographism, urticaria, angioedema. Peripheral pulses: n ormal (2+) bilaterally. Back: n ormal. Extremities: n ormal ROM, no clubbing, no cyanosis, no edema. Genitalia: n ot performed. Influenza Vaccine not administered R devi: P atient Reason T ype of Patient Reason: R efused Assessment: * Assessment: 1. S evere persistent asthma, uncomplicated - J45.50 (Primary) 2 . E osinophilic asthma - J82.83 3 . A llergic rhinitis due to pollen - J30.1 ?4. A llergy to other foods - Z91.018 5 . A llergic rhinitis due to animal (cat) (dog) hair and dander - J30.81 6 . O ther allergic rhinitis - J30.89? 7. O ther chronic allergic conjunctivitis - H10.45 8 . A llergic contact dermatitis due to adhesives - L23.1 Plan: * Treatment: Value Reference Range S piroPreBronchodilator_FVC 3.35 * S piroPreBronchodilator_FEF25_75 3.59 * S piroPreBronchodilator_FEV1 2.81 * S piroPrecentPredictionPre_FEF25_75 122.9 * S piroPrecentPredictionPre_FEV1 98.6 * S piroPrecentPredictionPre_FEV1_OVER_FVC 105.1 * S piroPrecentPredictionPre_FVC 94.6 * S piroPredicted_FEF25_75 2.92 * S piroPreBronchodilator_FEV1_OVER_FVC 83.93 * S piroPreBronchodilator_PEF 6.9 * S piroPredicted_FVC 3.54 * S piroPredicted_FEV1 2.85 * S piroPredicted_FEV1_OVER_FVC 79.86 * S piroPredicted_PEF 6.2 * NFEV1 and FVC within normal limits. Normal FVL. Impression: normal spirometry Notes: Brandy has persistent asthma and ACT 19. Spirometry today is normal. Planning to start Fasenra when shipment arrives. For now, continue Trelegy, Singulair and prn albuterol. She required steroids , and to treat asthma exacerbations. AEC 292. IgE 50. The patient has severe asthma with an eosinophilic phenotype. The patient has had inadequate control of asthma symptoms after a minimum of 3 months of compliant use of inhaled corticosteriods and long-acting beta2-agonist or inhaled corticosteroids and long-acting anti-muscarinic antagonist. The patient has had an eosinophil count in the past 90 days or 12 months as documented in this medical record ??2.?Allergic rhinitis due to pollen? Continue AUVI -Q kit, 0.3 mg, as directed, intramuscularly, once, 30 day(s), 1, Refills PRN;?Continue CETIRIZINE HYDROCHLORIDE tablet, 10 mg, 1 tab(s), orally, once a day;?Continue FAMOTIDINE tablet, 40 mg, 1 tab(s), orally, once a day (at bedtime);?Continue SIT (TRADITIONAL) see record, variable, per schedule, SC, per schedule.?? Notes: Brandy clearly suffers from atopic disease based upon history and skin testing. Accordingly, we have introduced a new, aggressive medication regimen, discussed nasal washes and allergy-specific avoidance measures. Immunotherapy dosing adjusted due to systemic reaction requiring epinephrine.Now tolerating immunotherapy well. ??3.?Allergy to other foods? Notes: Brandy's oropharyngeal symptoms from certain fresh fruits and nuts is consistent with oral allergy syndrome (OAS), a mild form of IgE-mediated allergy due to cross-reactivity between pollens and unstable food proteins on fresh produce and nuts.??4.?Other allergic rhinitis? Notes: Follow allergen avoidance, meds and continue SCIT as an adjunctive treatment to current regimen??5.?Other chronic allergic conjunctivitis? Notes: Given ocular signs and symptoms I encouraged allergy avoidance measures and meds as above. If symptoms persist, consider adding additional medications including intraocular antihistamine/mast cell stabilizer, PRN??6.?Allergic contact dermatitis due to adhesives? Notes: recommend continued avoidance of problematic bandages. No problems with exposure to latex ? * Procedures: S CIT: Traditional Aeroallergen Schedule A dministration: F ull dosing administered per SOP and AAIC's titration schedule and/or specific instructions as outlined on the patient's shot record; see attached for specifics re: content, concentration, volume and location of injection(s). * Procedure Codes: G 8427 DOC MEDS VERIFIED W/PT OR II32264 PT-FOCUSED HLTH RISK [id number] RESPIRATORY FLOW VOLUME [id number] IMMUNOTHERAPY INJECTIONS * Preventive Medicine: Counseling: D iet a s tolerated. E xercise C ontinue activity as usual. E ducation: O ur staff spent an additional 30 minutes in direct contact with the patient educating them on their current diagnoses and proper treatment and prevention of symptoms and the proper use of medications. E ducation 2: O ur staff discussed the appropriate allergen avoidance measures and medication utilization including upper airway hygiene with daily nasal washes given the patient's clinical status and diagnoses. P atient education material sent to portal? Y es C are goal follow up plan BMI management provided Y es Above Normal BMI Follow-up D ietary management education, guidance, and counseling * Follow Up: 1 Week (Reason: start [facility]) * Billing Information: * Visit Code: 04444 Office Visit, Est Pt., Level 4. Modifiers: 25 * Procedure Codes: G8427 DOC MEDS VERIFIED W/[place]. [address] PT-FOCUSED HLTH RISK ASSMT. A4617 Mouthpiece. 73667 RESPIRATORY FLOW VOLUME LOOP. 01889 IMMUNOTHERAPY INJECTIONS. * SORSHIP MANAGER Sign off status: Completed true * Provider: Eryn Meyers MD Date: 0 08/23/2024 Generated for Luis andrew/Agustina/Yolieitting on: 0 09/18/2024 09:00 AM CDT History and Physical Notes * HPI (History of Present Illness) Category Sub-Category Detail Notes Category Not es *Introduction I had the pleasure o f seeing Brandy Montenegro, a 53 year old with asthma, ARC, history of pancreatitis and OAS presenting for f/u evaluation of asthma. She was last evaluated 05-17-2024. ACT 19. She has required albuterol a few times in the last week with winter weather. She continues Trelegy and Singulair. She is planning to start Fasenra and needs to call [employer] for drug shipment. She was treated with prednisone June 2024 for sinusitis by urgent care. She reports recent abdominal pain and concern that pancreatitis is flaring. She has started a bland diet and spoken to her PCP. She was treated with prednisone January 2024 for asthma exacerbation. She also required steroids April 2023 and April 2022 for asthma exacerbations. She reports improvement in congestion and rhinorhea since starting immunotherapy. Also improvement in asthma control since starting immunotherapy. She is taking Singulair, Zyrtec and Famotidine prior to SCIT. Systemic reaction required epinephrine. She has oral allergy syndrome and is currently avoiding unprocessed honey, bananas, celery, apples, and pears. Today, she reports no fevers, chills, night sweats or other constitutional symptoms, Examination Category Sub-Category Detail Notes Category Not es General examination HEENT: conjunctiva are clear bilaterally, no tenderness to palpation of the sinuses, TM's without evidence of acute infection, turbinates 2+ swollen and pale inferiorly bilaterally, clear rhinorrhea is present, no polyps noted, no septal perforation, posterior oropharynx is clear, no exudates, no tongue swelling, and uvula is midline Neck, thyroid : supple, non-tender, no anterior cervical lymphadenopathy Heart: RRR, S1-S2, no murmu rs, no rubs, no gallops Lungs: clear to auscultatio n and percussion in all lung lopes, no wheezes or crackles Abdomen: Extremities: normal ROM, no clubb ing, no cyanosis, no edema General appearance: none Skin: normal, no rash, marianela matographism, urticaria, angioedema Neurologic exam: unremarkable Oral cavity: normal, no lesions Breasts : not performed Peripheral pulses: normal (2+) bilatera lly Back: normal Genitalia: not performed Influenza Vaccine not administered Reason:: Hellen ent Reason Type of Patient Reason:: Refused
--- OUTSIDE RECORDS SUMMARY | 2024-09-18 09:00 | XMS_ITS | Clinical Summary ---
Author Organization [facility] Address [address] [place] [address] Care Team Providers Care Client Relation Specialist Name Role Phone Devi George MD Primary Care Provider [phone] Source Comments [facility],non-owned Affiliates and Associated Physician Practices is amultiple site organization consisting of ambulatory clinics and hospital sitesin [place], [place], [place] and [place]. This disclosure is being madepursuant to the Care Everywhere program and may not contain all information available regarding this patient. Last updated 18.[facility] Allergies No known active allergies Immunizations Name [...] age to complete this topic Care Teams Client Relation Specialist Relationship Specialty Start Date End Date Devi George MD [address] [place] [address] PCP - General 10/01/21
--- OUTSIDE RECORDS SUMMARY | 2024-09-18 09:00 | XMS_ITS ---
Author Organization [facility] Address [address] [place] [id number] Care Team Providers Care Canvas Goods Fabricator Name Role Phone Devi George Primary Care Provider Demetrice Go Unavailable [phone] REASON FOR VISIT 90Day Rx Medications Medication SIG (Take, Route, Frequency, Duration) Notes Start Date End Date Status Montelukast Sodium 10 MG 1 tablet Orally Once a day for 90 days 09/07/2024 Active Encounters Encounter Location Date Provider Diagnosis [facility] [address] [place] [phone] 09/12/2024 Demetrice Meyers Plan Of Treatment Medication Medication Name Sig Start Date Stop Date Notes Montelukast Sodium 10 MG 1 tablet Orally Once a day for 90 days 09/07/2024 Next Appt Details Provider Name:Demetrice bills, 09/20/2024 10:00:00 AM, [address] [employer], [address], [address], Progress Notes * Brandy MONTENEGRO ADOB:[birth year] (53 yo F)Acc No.[id number]:09/12/2024 Patient: Kyrie MARILEEOswaldo Brandy Patricio :1970 A ge:53 Y S ex:Female Address:[address] [place] [address], [phone] * Refills Refill Montelukast Sodium Tablet, 10 MG, Orally, 90, 1 tablet, Once a day, 90 days, Refills=1 * true * Date: Generated for Luis andrew/Agustina/Jaziel on: 0 09/18/2024 09:00 AM CDT
--- OUTSIDE RECORDS SUMMARY | 2024-09-18 09:01 | XMS_ITS ---
Author Organization [email or web address] Address [address] [place] [address] [address] Care Team Providers Care Foam Caster Name Role Phone Devi George MD Primary Care Provider UnavailStevie Chappell [phone] REASON FOR VISIT Not seen, provider not available Social History Sex Assigned At : Social History Observation Description Sex Assigned At Female Encounters Encounter Location Date Provider Diagnosis [address] [address] 03/27/2024 Stevie Jackson Plan Of Treatment No Information Progress Notes * HODA MONTENEGROOB:1970 (53 yo F)Acc No.[id number]:03/27/2024 Patient: ANGELA ALARCON Provider: Loreta JACKSON MD :1970 A ge:53 Y S ex:Female Date:03/27/2024 Address:[address] [place], [place] [id number] Subjective: * Chief Complaints: * 1 . Not seen, provider not available. 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
--- OUTSIDE RECORDS SUMMARY | 2024-09-18 09:01 | XMS_ITS | Clinical Summary ---
Author Organization [facility] Address [address] [place] [phone] Phone Care Team Providers Care Location Director Name Role Phone Devi George MD Primary Care Provider [phone] Allergies Active Allergy Reactions Criticality Noted Date Comments Nickel Itching 12/10/2021 Wound Dressing Adhesive Itching,Rash Low 03/18/2022 Medications Medication Sig Dispensed Refills Start Date End Date Status Cholecalciferol (Vitamin D3) 1.25 MG (86975 UT) capsule Take 1 capsule by mouth [...] Comments Influenza Vaccine (#1) 2024 Care Teams Location Director Relationship Specialty Start Date End Date Devi George MD [address] [facility] [place] [address] PCP - General Internal Medicine 11/24/21
== END 2024-09-18 08:38 | disposition home or self-care (01) ==
PROVIDERS: PCP Internal Medicine; Visit Provider Nurse Practitioner Family
DX: R11.2 Nausea with vomiting, unspecified (principal); R10.9 Unspecified abdominal pain
CPT/HCPCS: 78264; A9541